=== PATIENT | female | born 1935 | race African-American/Black ===

== ENCOUNTER 2017-08-15 18:42 | Inpatient (IN) | payer OTHER ==
[~2017-08-15] VITALS: Ht 160 cm; Wt 96.2 kg
--- NOTE | ~2017-08-15 | 2DMMODE ---
[facility] [email or web address] [address] 2 D/M-MODE ECHOCARDIOGRAM Name: ANNAPEDRO Room #: 201-P [place] M.R.#: [id number] Admission: 08/15/17 Attend Phys: Ruperto Vinson, Discharge: Date of : 35 Date of Service: 08/17/17 0921 Report #: [id number] THIS REPORT FOR: //name// APPROVED REPORT Study performed: 08/17/2017 08:39:50 EXAM: Comprehensive 2D, Doppler, and color-flow Echocardiogram Patient Location: Bedside Room #: 201 Status: routine BSA: 2.02 HR: 59 bpm BP: 122/73 mmHg Other Information Study Quality: Adequate Indications COPD Diabetes Dyspnea Hypertension/HDD 2D Dimensions RVDd: 30.00 mm LVEF(%): 60.11 (>50%) IVSd: 12.14 (7-11mm) LVOT Diam: 20.84 (18-24mm) LVDd: 44.40 mm PWd: 12.20 (7-11mm) Ascending Ao: 27.89 (22-36mm) LVDs: 30.25 (25-40mm) Aortic Root: 33.24 mm IVC: 22.00 mm Swan's LVEF: 60.11 % Volumes Left Atrial Volume (Systole) Single Plane 4CH: 67.96 mL Single Plane 2CH: 58.80 mL LA ESV Index: 36.00 mL/m2 Aortic Valve AoV Peak Fausto.: 1.63 m/s AO Peak Gr.: 10.63 mmHg LVOT Max P.02 mmHg LVOT Max V: 1.12 m/s ROSA Vmax: 2.34 cm2 Mitral Valve [facility] [address] [place] [address] 2 D/M-MODE ECHOCARDIOGRAM Name: ANNAPEDRO Room #: [facility] IN ..#: [id number] Admission: 08/15/17 Attend Phys: Ruperto Vinson, Discharge: Date of : 35 Date of Service: 08/17/17 0921 Report #: [id number] E/A Ratio: 0.9 MV Decel. Time: 253.75 ms MV E Max Fausto.: 0.99 m/s MV A Fausto.: 1.12 m/s MV PHT: 73.59 ms IVRT: 106.11 ms Pulmonary Valve PV Peak Fausto.: 1.05 m/s PV Peak Gr.: 4.37 mmHg Pulmonary Vein P Vein S: 0.60 m/s P Vein A: 0.32 m/s P Vein D: 0.46 m/s P Vein A Dur.: 83.0 msec P Vein S/D Ratio: 1.30 Tricuspid Valve TR Peak Fausto.: 3.06 m/s TR Peak Gr.: 37.42 mmHg PA Pressure: 52.00 mmHg Left Ventricle The left ventricle is normal size. There is normal LV segmental wall motion. Mild concentric left ventricular hypertrophy. Left ventricular systolic function is hyperdynamic. LVEF is 65-70%. Grade I - abnormal relaxation pattern. Right Ventricle The right ventricle is normal size. The right ventricular systolic function is normal. Atria Left atrium is dilated. The right atrium size is normal. Aortic Valve Aortic valve is minimally calcified, trileaflet No aortic regurgitation is present. There is no aortic valvular stenosis. Mitral Valve Moderate mitral annular calcification Trace to mild mitral regurgitation. No evidence of mitral valve stenosis. Tricuspid Valve The tricuspid valve is normal in structure. There is trace tricuspid regurgitation. Estimated PAP [address] [address] 2 D/M-MODE ECHOCARDIOGRAM Name: PEDRO ANNA Room #: 201-P [place] IN ..#: [id number] Admission: 08/15/17 Attend Phys: Ruperto Vinson, Discharge: Date of : 35 Date of Service: 08/17/17 0921 Report #: [id number] Pulmonic Valve The pulmonary valve is normal in structure. Trace pulmonic regurgitation. Great Vessels The aortic root is normal in size. The inferior vena cava is dilated with no inspiratory collapse. Pericardium There is no pericardial effusion. <Conclusion> Left ventricular systolic function is hyperdynamic. LVEF is 65-70%. Normal LV segmental wall motion. Grade I diastolic dysfunction Aortic valve is minimally calcified, trileaflet. No aortic regurgitation or stenosis Moderate mitral annular calcification. Trace to mild mitral regurgitation. Pulmonary artery pressure of approximately 50mmHg There is no pericardial effusion. <ELECTRONICALLY SIGNED> By: Alejandro Key MD, FACC 08/17/17920 0 0 Alejandro Key MD, FACC /INF
--- NOTE | ~2017-08-15 | CATHLAB ---
[facility] [place] [address] INVASIVE PROCEDURE REPORT Name: PEDRO ANNA Room #: 201-P ADM IN .R.#: [id number] Admission: 08/15/17 Attend Phys: Ruperto Vinson, Discharge: Date of : 35 Date of Service: 08/20/17 0842 Report #: [id number] THIS REPORT FOR: //name// APPROVED REPORT Patient Details Patient Status: In-Patient Room #: The patient is a 82 year-old female Event Personnel Rahul Workman Payroll Examiner, Russel Luciano RN, Freddy Hester RN Monitor, Anisa Avitia Knisely, Ceola RN scow derrick operator Performed Art Access - R femoral artery* Left Heart Cath w/or w/o Coronaries [id number] [facility] Indication Non-STEMI , Positive stress test, Chest pain Risk Factors Hypercholesterolemia, HypertensionRenal Failure Procedure Narrative The patient was brought urgently to the Cardiac Catheterization Laboratory and was prepped and draped in a sterile manner. The Right Groin^ was infiltrated with 1% Lidocaine subcutaneous anesthesia. A PINNACLE 4FR Sheath #[id number] sheath was inserted into the RFA^. Coronary angiography was performed using coronary diagnostic catheters. The right coronary system was accessed and visualized with a JR 4 catheter. The left coronary system was accessed and visualized with a JL 4 catheter. The left ventricle was accessed and visualized with a Pigtail catheter. Left ventricular/Aortic Valve gradient assessed via catheter pullback. Hemostasis was obtained with manual pressure following sheath removal without any complications. The patient tolerated the procedure well and there were no complications associated with the procedure. There was no hematoma. Fluoro Time: 1.31 minutes Dose: DAP 3742.65 cGycm2 536 mGy Contrast Type and Amount: Visipaque 38 ml Coronary Angiography The patient's coronary anatomy is right dominant. [facility] [address] [place] [address] INVASIVE PROCEDURE REPORT Name: PEDRO ANNA Room #: 201-P [facility] IN ..#: [id number] Admission: 08/15/17 Attend Phys: Ruperto Vinson, Discharge: Date of : 35 Date of Service: 08/20/17 0842 Report #: [id number] Diagnostic Cath Left Main Patent vessel, with no flow-limiting lesions. LAD Patent vessel, with no flow-limiting lesions. There is only mild disease in the mid segment, 20%. Diagonal 1 Moderate size caliber vessel, with mild disease at the ostium, 20%. Circumflex Moderate size caliber vessel, with mild disease in the proximal segment, 20%. OM1 Patent vessel, with no flow-limiting lesions. OM2 Patent vessel, with no flow-limiting lesions. Right Coronary Patent vessel with mild disease in the mid segment, 20%. R PDA Patent vessel, with no flow-limiting lesions. RPLV Patent vessel, with no flow-limiting lesions. Left Ventriculography Left Ventriculography was not performed. Ejection Fraction was 60% based off patient's Nuclear Cardiac Stress Test. An LVEDP was measured and there is no gradient across the LVOT. Hemodynamics The aortic pressure is 188/87 mmHg with a mean of 111 mmHg. The left ventricular pressure is 141/18 mmHg with a mean of mmHg. The left ventricular end diastolic pressure is 38 mmHg. Conclusion 1. Mild, nonobstructive CAD. 2. Normal LV systolic function, evaluated by noninvasive studies. 3. Recommend medical therapy. <ELECTRONICALLY SIGNED> By: Rahul Workman MD 08/20/17841 1 1 Rahul Workman MD /INF
--- NOTE | ~2017-08-15 | EKG ---
[address] [place] [address] ELECTROCARDIOGRAM REPORT Name: ANNAPEDRO Room #: 201- ADM IN M.R.#: [id number] Admission: 08/15/17 Attend Phys: Ruperto Vinson MD Discharge: Date of : 35 Report #: [id number] THIS REPORT FOR: //name// [facility] Test Date: 2017-08-19 Test Time: 05:59:26 Pat Name: PEDRO ANNA Department: Room: 201 Gender: F Telephone Directory Distributor Driver: GRq : 1935 Requested By: Cristo Reddy Order Number: [id number] MD: Alejandro Key Measurements Intervals [place] Rate: 58 P: 52 [place]: 163 QRS: -13 QRSD: 97 T: 117 QT: 434 QTc: 427 Interpretive Statements Sinus rhythm Inferior infarct, old Baseline wander in lead(s) V6 Compared to ECG 08/18/2017 06:05:29 No significant change was found Electronically Signed On 08-19-2017 8:53:18 TOBACCO ACREAGE MEASURER by Alejandro Key [email or web address] <ELECTRONICALLY SIGNED> By: Alejandro Key MD, [facility] 08/19/17 0853 0559 0559 Alejandro Key MD, [facility] /EPI
--- NOTE | ~2017-08-15 | EKG ---
[address] [address] ELECTROCARDIOGRAM REPORT Name: PEDRO ANNA Room #: 201-P ADM IN M.R.#: [id number] Admission: 08/15/17 Attend Phys: Ruperto Vinson MD Discharge: Date of : 35 Report #: [id number] THIS REPORT FOR: //name// [facility] ED Test Date: 2017-08-15 Test Time: 18:44:24 Pat Name: PEDRO ANNA Department: Room: [facility] Gender: F Electric Stop Installer: SARA : 1935 Requested By: Marielle West Order Number: [id number] MD: Cristo Reddy Measurements Intervals [place] Rate: 77 P: 32 [place]: 150 QRS: -12 QRSD: 102 T: 114 QT: 396 QTc: 449 Interpretive Statements Sinus rhythm Probable left atrial enlargement LVH with secondary repolarization abnormality Inferior infarct, old Compared to ECG 12/31/2014 12:03:36 Myocardial infarct finding now present Electronically Signed On 08-16-2017 16:07:25 BEAN SPROUT LABORER by Cristo Reddy [email or web address] <ELECTRONICALLY SIGNED> By: Cristo Reddy MD 08/16/17 1607 1844 1844 Cristo Reddy MD /EPI
--- NOTE | ~2017-08-15 | EKG ---
[address] [address] ELECTROCARDIOGRAM REPORT Name: PEDRO ANNA Room #: 201-P ADM IN M.R.#: [id number] Admission: 08/15/17 Attend Phys: Ruperto Vinson MD Discharge: Date of : 35 Report #: [id number] THIS REPORT FOR: //name// [facility] Test Date: 2017-08-20 Test Time: 05:56:08 Pat Name: PEDRO ANNA Department: Room: 201 P Gender: F Automotive Mechanic: NASIM : 1935 Requested By: Cristo Reddy Order Number: [id number] MD: Cristo Reddy Measurements Intervals [place] Rate: 45 P: 58 IN: 166 QRS: -8 QRSD: 102 T: 101 QT: 460 QTc: 398 Interpretive Statements Sinus bradycardia Nonspecific T abnormalities, lateral leads Compared to ECG 08/19/2017 05:59:26 T-wave abnormality now present Sinus rhythm no longer present Myocardial infarct finding no longer present Electronically Signed On 08-20-2017 11:21:42 CYLINDER SANDER OPERATOR by Cristo Reddy [email or web address] <ELECTRONICALLY SIGNED> By: Cristo Reddy MD 08/20/17 1121 0556 0556 Cristo Reddy MD /EPI
--- NOTE | ~2017-08-15 | EKG ---
[place] [address] [facility] [place] [address] ELECTROCARDIOGRAM REPORT Name: PEDRO ANNA Room #: 201- ADM IN M.R.#: [id number] Admission: 08/15/17 Attend Phys: Ruperto Vinson MD Discharge: Date of : 35 Report #: [id number] THIS REPORT FOR: //name// [facility] Test Date: 2017-08-17 Test Time: 06:13:37 Pat Name: PEDRO ANNA Department: Room: 201 Gender: F Textile Conservator: NASIM : 1935 Requested By: Cristo Rdedy Order Number: [id number] MD: Alejandro Key Measurements Intervals [place] Rate: 58 P: 50 [place]: 172 QRS: -1 QRSD: 99 T: 128 QT: 416 QTc: 409 Interpretive Statements Sinus rhythm Repol abnrm suggests ischemia, lateral leads Compared to ECG 08/15/2017 18:44:24 No significant changes Electronically Signed On 08-17-2017 7:49:32 EXIT BOOTH AGENT by Alejandro Key [email or web address] <ELECTRONICALLY SIGNED> By: Alejandro Key MD, [facility] 08/17/17 0749 2 2 Alejandro Key MD, [facility] /EPI
--- NOTE | ~2017-08-15 | EKG ---
[address] [address] ELECTROCARDIOGRAM REPORT Name: PEDRO ANNA Room #: 201-P ADM IN M.R.#: [id number] Admission: 08/15/17 Attend Phys: Ruperto Vinson MD Discharge: Date of : 35 Report #: [id number] THIS REPORT FOR: //name// [facility] Test Date: 2017-08-17 Test Time: 06:25:05 Pat Name: PEDRO ANNA Department: Room: 201 Gender: F Corncob Pipe Manufacturing Supervisor: NASIM : 1935 Requested By: Cristo Reddy Order Number: [id number] MD: Cristo Reddy Measurements Intervals [place] Rate: 72 P: 94 CT: 146 QRS: -11 QRSD: 142 T: 161 QT: 431 QTc: 472 Interpretive Statements Sinus rhythm Ventricular premature complex Left bundle branch block Compared to ECG 08/17/2017 06:13:37 Ventricular premature complex(es) now present Left bundle-branch block now present Early repolarization no longer present Possible ischemia no longer present Electronically Signed On 08-17-2017 16:26:46 RELAY ADJUSTER by Cristo Reddy [email or web address] <ELECTRONICALLY SIGNED> By: Cristo Reddy MD 08/17/17 1626 Cristo Reddy MD /EPI
--- NOTE | ~2017-08-15 | EKG ---
[address] [place] [address] ELECTROCARDIOGRAM REPORT Name: WILFRIDOPEDRO Room #: 201-P ADM IN M.R.#: [id number] Admission: 08/15/17 Attend Phys: Ruperto Vinson MD Discharge: Date of : 35 Report #: [id number] THIS REPORT FOR: //name// [facility] Test Date: 2017-08-18 Test Time: 06:05:29 Pat Name: PEDRO ANNA Department: Room: 201 Gender: F Touch Up Edger: NASIM : 1935 Requested By: Cristo Reddy Order Number: [id number] MD: Alejandro Key Measurements Intervals [place] Rate: 64 P: 54 [place]: 159 QRS: -11 QRSD: 98 T: 119 QT: 409 QTc: 422 Interpretive Statements Sinus arrhythmia Inferior infarct, old Nonspecific ST segment abnormality Compared to ECG 08/17/2017 06:25:05 Left bundle-branch block no longer present premature ventricular complexes no longer present Electronically Signed On 08-18-2017 7:45:28 NURSE PLASTICS by Alejandro Key [email or web address] <ELECTRONICALLY SIGNED> By: Alejandro Key MD, FACC 08/18/17 0745 Alejandro Key MD, [facility] /EPI
--- NOTE | ~2017-08-15 | HC ---
[facility] [place] [address] CONSULTATION Name: PEDRO ANNA Room #: 201-P [facility] IN M.R.#: [id number] Admission: 08/15/17 Attend Phys: Ruperto Vinson MD Discharge: 08/20/17 Date of : 35 Report #: [id number] THIS REPORT FOR: //name// CC: Ruperto Chopra DATE OF SERVICE: 08/16/2017 TYPE OF CONSULTATION: Cardiology. REASON FOR CONSULTATION: Non-ST segment elevation myocardial infarction. HISTORY OF PRESENT ILLNESS: This patient is an 82-year-old female with a history of COPD, chronic renal insufficiency, diabetes, and hypertension, who presents with new onset chest pain. She reports that she was lying in bed, watching TV yesterday when she had 7/10 chest pressure, radiating to her neck, which resolved when she presented to the Emergency Room. She is currently chest pain free. She has chronic shortness of breath, on home oxygen. She denies any PND or orthopnea. She denies presyncope or syncope. REVIEW OF SYSTEMS: A 12-point review of systems was performed and was negative other than what I mentioned above. PAST MEDICAL HISTORY: 1. COPD, on oxygen. 2. Chronic renal insufficiency. 3. Diabetes. 4. Hypertension. 5. CVA. 6. Hyperlipidemia. 7. Breast cancer, status post bilateral mastectomy. 8. CVA in 2001. SOCIAL HISTORY: Quit smoking 30 years ago. FAMILY HISTORY: Includes CVA in the family member. ALLERGIES: Include LISINOPRIL and HYDROCODONE. HOME MEDICATIONS: Include glimepiride, Lasix, simvastatin, Synthroid, losartan, doxazosin, hydralazine, Toprol 200 mg a day, and insulin. PHYSICAL EXAMINATION: VITAL SIGNS: Temperature is 36.6, pulse in the 50s to 60s, respirations 18, blood pressure 177/72, sats are 99%. GENERAL: She is in no acute distress. [address] [address] CONSULTATION Name: PEDRO ANNA Room #: [address] [place] [address] [place] ..#: [id number] Admission: 08/15/17 Attend Phys: Ruperto Vinson MD Discharge: 08/20/17 Date of : 35 Report #: [id number] HEENT: Oropharynx is clear and her sclerae are anicteric. NECK: Supple with no thyromegaly. HEART: Regular rate and rhythm with no murmurs, rubs or gallops. CHEST: Clear to auscultation bilaterally. ABDOMEN: Soft, nontender, nondistended with no hepatosplenomegaly. EXTREMITIES: There is no clubbing, cyanosis or edema. NEUROLOGIC: Cranial nerves 2-12 are intact. LABORATORY DATA: White count is 11, hemoglobin 9, platelets 162. Blood gas, pH is 7.3, pCO2 41, pO2 is 86. Chemistries: Sodium is 139, potassium 4.4, BUN 51, creatinine 2.7, glucose 209. Troponin is 0.2 increased from 0.1 and the initial troponin was less than 0.04. BNP is 202. Her chest x-ray shows possible right-sided pleural effusion. Her EKG shows sinus rhythm with an intraventricular conduction delay and no ischemic changes. IMPRESSION: 1. Non-ST segment elevation myocardial infarction. 2. Acute on chronic renal insufficiency. 3. Chronic obstructive pulmonary disease, on oxygen. 4. Diabetes mellitus. 5. Hypertension. 6. Hyperlipidemia. 7. Prior cerebrovascular accident. 8. Hyperkalemia. PLAN: In summary, the patient is an 82-year-old female, presenting with new onset chest pain and elevation in her troponin level with no ischemic changes on her EKG. It appears that the patient has had a non-ST segment elevation MN. She is currently in acute on chronic renal insufficiency. Creatinine was normal few years ago, but I do not have any other more recent laboratories. The patient requires an ischemic evaluation. Ideally, we would proceed with a diagnostic cardiac catheterization, but due to her renal insufficiency, we will need to hold off. I will order a nuclear stress test to see if we can determine the territory of ischemia. I will stop her losartan therapy and give her some IV fluids and I recommended a Nephrology consultation. We will also order an echocardiogram. We will follow. <ELECTRONICALLY SIGNED> By: Cristo Reddy MD 08/21/17 1313 0952 0359 Cristo Reddy MD /nt
--- NOTE | ~2017-08-15 | HC ---
[facility] [place] [address] CONSULTATION Name: PEDRO ANNA Room #: 201-P [facility] IN M.R.#: [id number] Admission: 08/15/17 Attend Phys: Ruperto Vinson MD Discharge: 08/20/17 Date of : 35 Report #: [id number] THIS REPORT FOR: //name// CC: Ruperto Chopra DATE OF SERVICE: 08/16/2017 ATTENDING PHYSICIAN: Dr. Vinson. REASON FOR CONSULTATION: Chronic kidney disease. HISTORY OF PRESENT ILLNESS: This 82-year-old patient with diabetes mellitus and triopathy, has known diabetic nephropathy and has been seen in our office. She developed a squeezing chest pressure yesterday, was brought to the hospital, was found that subsequently to have an elevated troponin and is being evaluated for coronary artery disease. Symptoms resolved, but she may be in need of heart catheterization. PAST MEDICAL HISTORY: She has longstanding diabetes. She has got retinopathy, rather symptomatic, peripheral neuropathy and apparent nephropathy and has been seen in our office. At that time, her diuretics were adjusted down, and she developed some swelling in her legs. I will review the office records. I am unclear as to the exact level of her outpatient creatinines in the past, but her creatinine here is 2.7. She is a former smoker with some degree of known COPD. She has had previous bilateral mastectomies for breast cancer, laser surgery for diabetic retinopathy. ALLERGIES: REPORTEDLY TO LISINOPRIL, WHICH PRODUCED FACIAL EDEMA AND HYDROCODONE. FAMILY HISTORY: Strongly positive for diabetes, but negative for renal disease or diabetic complications as we know. SOCIAL HISTORY: Former heavy smoker, but she quit. No substantial alcohol. HOME MEDICATIONS: She is a little bit unclear, but as best as I can tell, she has been on glimepiride 3 mg daily, furosemide 40 mg once a day, previously twice a day. She was on spironolactone that was discontinued. Simvastatin 20 mg daily, levothyroxine 0.125 mg daily, losartan 100 mg daily, doxazosin 4 mg daily, hydralazine 100 mg t.i.d., metoprolol XL 200 mg daily and Lantus insulin. REVIEW OF SYSTEMS: GENERAL: She has been feeling reasonably well. EYES: She has had some trouble with her eyesight and has had laser surgery to her retina. [address] [address] CONSULTATION Name: PEDRO ANNA Room #: 201-P [facility] IN .R.#: [id number] Admission: 08/15/17 Attend Phys: Ruperto Vinson MD Discharge: 08/20/17 Date of : 35 Report #: [id number] ENT: Swallows okay without mouth ulcers. ENDOCRINE: Positive for diabetes and thyroid disease. RESPIRATORY: Somewhat easily short-winded with occasional wheezing. CARDIAC: No prior chest pain, history of angina, palpitations or heart failure. GASTROINTESTINAL: No nausea, vomiting, diarrhea or difficulty with digestion. GENITOURINARY: No dysuria, hematuria or renal stone disease. NEUROLOGIC: She has got the severe pain in her legs and just a little bit of numbness in her feet. PSYCHIATRIC: Denies depression or anxiety. PHYSICAL EXAMINATION: VITAL SIGNS: Somewhat overweight, pleasant woman, in absolutely no distress. SKIN: Unremarkable. SKELETAL: Well developed, well nourished, obese. HEENT: Extraocular movements are full. Vision grossly intact. Hearing intact. Mucous membranes moist. Tongue, buccal mucosa benign. NECK: Supple, without jugular vein distention, no carotid bruits. HEART: Regular without murmurs, gallops or rubs. CHEST: Shows some crackles heard, inspiratory crackles at the right base. ABDOMEN: Soft and nontender, without bruits, masses or organomegaly. EXTREMITIES: Show 1+ edema only of the left ankle. Peripheral pulses are intact. NEUROLOGIC: Grossly intact. LABORATORY DATA: No urinalysis. Hemoglobin 9.1, platelets 162. Sodium 139, potassium 4.4, chloride 106, bicarbonate 23, BUN 51, creatinine 2.7. ASSESSMENT: 1. Chronic kidney disease. She appears to have diabetic nephropathy. I will check urinary protein studies for completeness, paraprotein studies and renal sonogram need to be done as well. She is getting some IV fluids, which is appropriate, but we certainly do not need to overdo that. She is getting a stress test. She may need a heart catheterization. Certainly if warranted, a cardiac workup would be indicated, and we will do the best we can to prevent dye nephropathy. 2. Acute coronary syndrome. She has elevated troponin and appropriate history. I had an opportunity to examine her EKGs. She did have a question of a little bit of fluid overload on her initial chest x-ray reviewed by myself. 3. History of breast cancer, status post bilateral mastectomies, remote. 4. Hypothyroidism, on replacement. 5. 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 <ELECTRONICALLY SIGNED> By: Liam Christianson MD 08/28/17 1042 1623 0939 Liam Christianson MD /nt
[2017-08-15 18:42] VITALS: BP 131/64
[~2017-08-15 18:42] MED LIST: ACTOS 45 MG45 M1; AFEDITAB CR30 MG PO; AGGRENOX CAPSU1 EACH; ALEVE220 MG PO; BENADRYL25 MG PO; CARDURA2 MG PO; CARDURA4 MG PO; COMBIGAN EYE DR10 ML; COZAAR100 MG PO; GLUMETZA1000 PO; GLYBURIDE 5 MG T5 MG; HCTZ; HYDRALAZINE 5050 MG PO; HYDRALAZINE HC100 MG PO; HYDROCHLOROTHIA50 MG PO; K-DUR 20 MEQ T20 MEQ; LANTUS SUBQ; LASIX 40 MG TAB40 M2 PO; LASIX 80 MG TAB80 MG PO; LATANOPROST2.5 ML OP; LEVOCETIRIZINE D5 MG PO; LEVOTHYROXIN0.125 M1 PO; LISINOPRIL40 MG; METFORMIN HCL500 MG PO; NORCO 5-325 TA1 EACH; NORVASC10 MG; NYSTATIN1 EA10; PREDNISONE50 MG PO; TOPROL XL200 MG PO; TOPROL XL25 MG PO; TRAMADOL 50 MG50 MG PO; VALIUM5 MG PO; VENTOLIN HFA 1818 GM INH; ZOCOR 20 MG TAB20 M1 PO; ZPAK PO
[2017-08-15 19:18] LABS: ABSOLUTE NEUTROPHILS 8.6 thou/uL (1.4-8.2); BASOPHILS 0.6 % (0.0-2.0); EOSINOPHILS 0.9 % (0.0-3.0); HEMATOCRIT 29.1 % (37.0-47.0); HEMOGLOBIN 9.1 gm/dL (12.0-15.0); LYMPHOCYTES 14.8 % (24.0-44.0); MANUAL DIFF NO; MCH 27.3 pg (26.0-34.0); MCHC 31.1 g/dL (28.0-37.0); MCV 87.7 fL (80.0-100.0); MONOCYTES 6.1 % (1.0-8.0); PLATELET COUNT 162 thou/uL (150-400); POLYS 77.6 % (36.0-66.0); RBC 3.32 mil/uL (4.20-5.00); RDW 14.7 % (10.5-14.5); WBC 11.1 thou/uL (4.0-11.0)
[2017-08-15 19:22] LABS: ABG SAMPLE TYPE ARTERIAL; BE(vivo) -5.6 mmol/L (-2 to +3); HCO3 20.4 mmol/L (22.0-26.0); LACTATE 1.45 mmol/L (0.5-2.0); O2(CT) 16.3 mL/dL (15.0-23.0); O2Hb 94.6 % (92.0-98.0); PCO2 41.6 mmHg (35.0-45.0); PO2 86.4 mmHg (80.0-100.0); sO2 95.7 % (92.0-98.0); tCO2 21.7 mmol/L (24.0-30.0)
[2017-08-15 19:23] LABS: STICK SITE LRA
[2017-08-15 19:25] LABS: pH 7.308 (7.360-7.450)
[2017-08-15 19:26] LABS: ANION GAP 9 mmol/L (7-16); BUN 52 mg/dL (7-18); CALCIUM 9.6 mg/dL (8.5-10.1); CHLORIDE 106 mmol/L (98-107); CO2 24 mmol/L (21-32); CREATININE 2.8 mg/dL (0.6-1.0); GLUCOSE 224 mg/dL (74-106); SODIUM 139 mmol/L (136-145)
[2017-08-15 19:34] LABS: TROPONIN-I < 0.04 ng/mL (<0.06)
[2017-08-15 19:35] LABS: POTASSIUM 5.8 mmol/L (3.5-5.1)
[2017-08-15 20:22] LABS: CALCIUM 9.9 mg/dL (8.5-10.1); CREATININE 2.7 mg/dL (0.6-1.0); POTASSIUM 4.4 mmol/L (3.5-5.1)
[2017-08-15 21:07] VITALS: BP 141/66
[2017-08-15] MEDS ORDERED: AMARYL2 MG PO (21:54)
[2017-08-15 22:16] VITALS: BP 134/65
[2017-08-16] VITALS (7 sets, daily range): BP systolic 116–177; BP diastolic 47–72
[2017-08-16 01:24] LABS: CHOLESTEROL 116 mg/dL (<200); HDL CHOLESTEROL 65 mg/dL (>40); LDL CHOLESTEROL 41 mg/dL (<100); SERUM ASSESSMENT Clear; TC:HDL 1.8 Ratio (Not establshd); TRIGLYCERIDE 53 mg/dL (<150); VLDL 11 mg/dL (<40)
[2017-08-16] MEDS ORDERED: LASIX 40 MG TAB40 M2 PO (02:11)
[2017-08-16 15:06] LABS: GLYCOHEMOGLOBIN (HGB A1C) 7.2 % (4.8-5.6)
[2017-08-16 17:48] LABS: URINE BILIRUBIN NEGATIVE (Negative); URINE BLOOD NEGATIVE (Negative); URINE COLOR YELLOW; URINE GLUCOSE-RANDOM* 3+ (Negative); URINE KETONES NEGATIVE (Negative); URINE NITRITE NEGATIVE (Negative); URINE PROTEIN (DIPSTICK) NEGATIVE (Negative); URINE UROBILINOGEN 0.2 E.U./dl (0.2-1.0)
[2017-08-16 17:52] LABS: PROT/CREAT RATIO 0.1; URINE CREATININE-RANDOM* 93.1 mg/dL
[2017-08-17 03:48] VITALS: BP 122/73
[2017-08-17 04:11] LABS: HEMATOCRIT 26.7 % (37.0-47.0); HEMOGLOBIN 8.4 gm/dL (12.0-15.0); MCH 27.7 pg (26.0-34.0); MCHC 31.3 g/dL (28.0-37.0); MCV 88.3 fL (80.0-100.0); RBC 3.02 mil/uL (4.20-5.00); RDW 14.8 % (10.5-14.5); WBC 13.1 thou/uL (4.0-11.0)
[2017-08-17 04:23] LABS: ALBUMIN 3.3 g/dL (3.4-5.0); CALCIUM 9.3 mg/dL (8.5-10.1); CREATININE 2.1 mg/dL (0.6-1.0); PHOSPHORUS 3.3 mg/dL (2.5-4.9); POTASSIUM 4.7 mmol/L (3.5-5.1)
[2017-08-17 13:20] LABS: FOLIC ACID 8.8 ng/mL (8.6-58.9)
[2017-08-17 14:00] VITALS: BP 135/61
[2017-08-17 15:29] VITALS: BP 152/74
[2017-08-17 19:21] VITALS: BP 151/68
[2017-08-18 03:45] LABS: HEMOGLOBIN 8.3 gm/dL (12.0-15.0); MCH 28.4 pg (26.0-34.0); MCHC 31.9 g/dL (28.0-37.0); RBC 2.93 mil/uL (4.20-5.00); WBC 9.5 thou/uL (4.0-11.0)
[2017-08-18 03:52] LABS: ALBUMIN 3.2 g/dL (3.4-5.0); CALCIUM 9.2 mg/dL (8.5-10.1); CREATININE 1.9 mg/dL (0.6-1.0); MAGNESIUM 1.9 mg/dL (1.8-2.4); POTASSIUM 4.9 mmol/L (3.5-5.1)
[2017-08-18 03:55] LABS: % SATURATION 11 % (20-39); IRON 35 ug/dL (50-170); TIBC 311 ug/dL (250-450); UIBC 276 ug/dL
[2017-08-18 03:57] VITALS: BP 153/71
[2017-08-18 07:16] VITALS: BP 123/62
[2017-08-18 11:32] VITALS: BP 160/75
[2017-08-18 13:11] LABS: KAPPA FREE LIGHT CHAINS 36.5 mg/L (3.3-19.4); KAPPA/LAMBDA RATIO 1.67 (0.26-1.65); LAMBDA FREE LIGHT CHAINS 21.8 mg/L (5.7-26.3)
[2017-08-18 15:18] VITALS: BP 159/70
[2017-08-18 19:54] VITALS: BP 156/69
[2017-08-19 04:11] VITALS: BP 152/69
[2017-08-19 04:26] LABS: ABSOLUTE NEUTROPHILS 5.6 thou/uL (1.4-8.2); BASOPHILS 0.6 % (0.0-2.0); EOSINOPHILS 2.7 % (0.0-3.0); HEMATOCRIT 27.6 % (37.0-47.0); HEMOGLOBIN 8.8 gm/dL (12.0-15.0); LYMPHOCYTES 18.1 % (24.0-44.0); MCH 28.2 pg (26.0-34.0); MCV 88.3 fL (80.0-100.0); MONOCYTES 11.4 % (1.0-8.0); PLATELET COUNT 152 thou/uL (150-400); POLYS 67.2 % (36.0-66.0); RBC 3.12 mil/uL (4.20-5.00); RDW 14.7 % (10.5-14.5); WBC 8.4 thou/uL (4.0-11.0)
[2017-08-19 04:36] LABS: CALCIUM 9.3 mg/dL (8.5-10.1); CREATININE 1.8 mg/dL (0.6-1.0); POTASSIUM 4.6 mmol/L (3.5-5.1)
[2017-08-19 04:43] LABS: MANUAL DIFF NO
[2017-08-19 07:17] VITALS: BP 129/57
[2017-08-19 09:08] LABS: ALBUMIN 3.5 g/dL (2.9-4.4); ALPHA 1 0.2 g/dL (0.0-0.4); ALPHA 2 0.8 g/dL (0.4-1.0); BETA 1.1 g/dL (0.7-1.3); GAMMA 1.4 g/dL (0.4-1.8); M-SPIKE Not Observed g/dL (Not Observed)
[2017-08-19 11:48] VITALS: BP 165/74
[2017-08-19 19:05] VITALS: BP 149/62
[2017-08-20] VITALS: BP 155/70
[2017-08-20 03:30] VITALS: BP 146/57
[2017-08-20 03:37] LABS: HEMATOCRIT 27.9 % (37.0-47.0); HEMOGLOBIN 8.7 gm/dL (12.0-15.0); MCH 27.8 pg (26.0-34.0); MCHC 31.3 g/dL (28.0-37.0); RBC 3.13 mil/uL (4.20-5.00); RDW 14.8 % (10.5-14.5); WBC 8.6 thou/uL (4.0-11.0)
[2017-08-20 03:51] LABS: CREATININE 1.6 mg/dL (0.6-1.0); PHOSPHORUS 2.8 mg/dL (2.5-4.9); POTASSIUM 4.8 mmol/L (3.5-5.1)
[2017-08-20 07:20] VITALS: BP 152/66
[2017-08-20 11:25] VITALS: BP 161/64
[2017-08-20] MEDS ORDERED: ASPIR 8181 MG PO (11:51)
[2017-08-20 13:45] VITALS: BP 161/64
== END 2017-08-20 14:30 | disposition home or self-care (01) | DRG 281 ==
LOC: ER 18:42 → 2N 20:13 → EROBS 20:13 → 2N 21:08 → ENTRNSPT 08-20 14:12 → EDTRNSPTSTS 08-20 14:17 → 2N 08-20 14:30
PROVIDERS: Emergency Medicine; Internal Medicine; Internal Medicine Cardiovascular Disease; Internal Medicine Nephrology; Nurse Practitioner Acute Care
PROC: B2111ZZ Fluoroscopy of Multiple Coronary Arteries using Low Osmolar Contrast (ICD-10-PCS; principal; 2017-08-20)
PROC: 4A023N7 Measurement of Cardiac Sampling and Pressure, Left Heart, Percutaneous Approach (ICD-10-PCS; principal; 2017-08-20)
DX: I21.4 Non-ST elevation (NSTEMI) myocardial infarction (principal); N17.9 Acute kidney failure, unspecified; E78.00 Pure hypercholesterolemia, unspecified; J44.9 Chronic obstructive pulmonary disease, unspecified; I12.9 Hypertensive chronic kidney disease with stage 1 through stage 4 chronic kidney disease, or unspecified chronic kidney disease; E11.22 Type 2 diabetes mellitus with diabetic chronic kidney disease; E87.5 Hyperkalemia; I24.9 Acute ischemic heart disease, unspecified; E11.319 Type 2 diabetes mellitus with unspecified diabetic retinopathy without macular edema; E11.40 Type 2 diabetes mellitus with diabetic neuropathy, unspecified; E89.0 Postprocedural hypothyroidism; I27.20 Pulmonary hypertension, unspecified; N18.3 Chronic kidney disease, stage 3 (moderate); D64.9 Anemia, unspecified; E11.51 Type 2 diabetes mellitus with diabetic peripheral angiopathy without gangrene; I25.10 Atherosclerotic heart disease of native coronary artery without angina pectoris; Z80.0 Family history of malignant neoplasm of digestive organs; Z90.13 Acquired absence of bilateral breasts and nipples; Z82.3 Family history of stroke; Z83.3 Family history of diabetes mellitus; Z86.73 Personal history of transient ischemic attack (TIA), and cerebral infarction without residual deficits; Z85.3 Personal history of malignant neoplasm of breast; Z79.899 Other long term (current) drug therapy; Z88.8 Allergy status to other drugs, medicaments and biological substances; Z82.49 Family history of ischemic heart disease and other diseases of the circulatory system; Z87.891 Personal history of nicotine dependence
CPT/HCPCS: 10081

== ENCOUNTER 2020-03-06 17:45 | Inpatient (IN) | payer OTHER ==
[~2020-03-06] VITALS: Ht 160 cm; Wt 93.8 kg
[2020-03-06 17:45] VITALS: BP 127/59
[~2020-03-06 17:45] MED LIST changes: +AMARYL2 MG PO; +ASPIR 8181 MG PO; -LEVOTHYROXIN0.125 M1 PO; +SYNTHROID100 MC1 PO
[2020-03-06 20:11] LABS: ABSOLUTE NEUTROPHILS 6.7 thou/uL (1.4-8.2); BASOPHILS 1.3 % (0.0-2.0); HEMATOCRIT 24.2 % (37.0-47.0); HEMOGLOBIN 7.9 gm/dL (12.0-15.0); MCH 29.5 pg (26.0-34.0); MCHC 32.6 g/dL (28.0-37.0); MCV 90.7 fL (80.0-100.0); MONOCYTES 7.5 % (1.0-8.0); PLATELET COUNT 207 thou/uL (150-400); POLYS 74.2 % (36.0-66.0); RBC 2.67 mil/uL (4.20-5.00); RDW 16.2 % (10.5-14.5); WBC 9.1 thou/uL (4.0-11.0)
[2020-03-06 20:20] LABS: CALCIUM 9.7 mg/dL (8.5-10.1); CREATININE 2.5 mg/dL (0.6-1.0); POTASSIUM 5.4 mmol/L (3.5-5.1)
[2020-03-06 20:26] LABS: ALBUMIN 3.5 g/dL (3.4-5.0); TOTAL BILIRUBIN 0.3 mg/dL (0.2-1.0); TOTAL PROTEIN 7.1 g/dL (6.4-8.2)
[2020-03-06 20:40] LABS: URINE BILIRUBIN NEGATIVE (Negative); URINE BLOOD NEGATIVE (Negative); URINE CLARITY CLEAR; URINE COLOR YELLOW; URINE GLUCOSE-RANDOM* NEGATIVE (Negative); URINE KETONES NEGATIVE (Negative); URINE NITRITE-REFLEX NEGATIVE (Negative); URINE PROTEIN (DIPSTICK) NEGATIVE (Negative); URINE UROBILINOGEN 0.2 E.U./dl (0.2-1.0)
[2020-03-06 20:46] LABS: URINE LEUKOCYTES-REFLEX 1+ (Negative)
[2020-03-06 20:57] LABS: CASTS None Seen /LPF (None Seen); CRYSTALS None Seen /LPF (None Seen); SQUAMOUS 4-10 Moderate /LPF (0-3); URINE RBC None Seen /HPF (0-2); URINE WBC-REFLEX 6-15 Few /HPF (0-5)
[2020-03-06 20:58] LABS: YEAST-REFLEX Present (None Seen)
[2020-03-06] MEDS ORDERED: CHILDREN'S ASPI81 M1 PO (21:03)
[2020-03-06] MEDS ORDERED: LEVEMIR100 UNIT/1 SUBQ (21:05)
[2020-03-06] MEDS ORDERED: SPIRONOLACTONE50 MG PO (21:06)
[2020-03-06] MEDS ORDERED: [UNRECOGNIZED DRUG - OTHER] PO (21:07)
[2020-03-07] VITALS (20 sets, daily range): BP systolic 87–155; BP diastolic 37–63
--- NOTE | 2020-03-07 04:56 | NUR ---
0430 PT ARRIVED VIA CART FROM ER. GOT PT SETTLED IN BED FOR SOME REST. ADMISSION, CARE PLAN, MED REC, INTERVENTIONS ALL COMPLETED. PT IS A/0X4, UP WITH SBA, NO FEVER, AND TELE SHOWS SB W/BBB. 3L VIA NC. WILL BEGIN THE POC THAT HAS BEEN ESTABLISHED AT THIS POINT.
[2020-03-07 06:26] LABS: CHOLESTEROL 95 mg/dL (<200); HDL CHOLESTEROL 42 mg/dL (>40); LDL CHOLESTEROL 27 mg/dL (<100); TC:HDL 2.3 Ratio (Not establshd); TRIGLYCERIDE 131 mg/dL (<150); VLDL 26 mg/dL (<40)
[2020-03-07 06:30] LABS: SERUM ASSESSMENT Clear
--- NOTE | 2020-03-07 07:32 | EKG ---
[facility] [place] [address] ELECTROCARDIOGRAM REPORT Name: PEDRO ANNA Room #: 238-P ADM IN M.R.#: [id number] Admission: 03/06/20 Attend Phys: Tejas Ayala MD Discharge: Date of : 35 Report #: [id number] THIS REPORT FOR: cc: Tracie Chopra MD, Nora P. MD Lundgren,Alejandro Rodriguez MD [facility] ~ THIS REPORT FOR: //name// [facility] ED Test Date: 2020-03-06 Test Time: 19:23:07 Pat Name: PEDRO ANNA Department: Room: 238 Gender: F Motor Vehicle Compliance Analyst: EMILIE : 1935 Requested By: Austyn Clinton Order Number: [id number] MD: Alejandro Key Measurements Intervals [place] Rate: 48 P: 37 [place]: 176 QRS: -6 QRSD: 98 T: 120 QT: 417 QTc: 373 Interpretive Statements Sinus bradycardia Ventricular premature complex Inferior infarct, old Compared to ECG 08/20/2017 05:56:08 Ventricular premature complex(es) now present Electronically Signed On 03-07-2020 7:31:16 CDT by Alejandro Key [email or web address] <ELECTRONICALLY SIGNED> By: Alejandro Key MD, [facility] 03/07/20 0731 22 22 Alejandro Key MD, FAC /EPI
--- NOTE | 2020-03-07 11:58 | NUR ---
ALERT AND ORIENTED AND HAS DENIED PAIN. VITALS STABLE. UP TO CHAIR WITH STANDBY ASSIST AND ABLE TO USE BSC. TOLERATED DIET W/O NAUSEA. DAUGHTER UPDATED OVER THE PHONE THIS MORNING.
--- NOTE | 2020-03-07 16:17 | NUR ---
Chart reviewed and case discussed with the care team. Pt currently in ICU in enhanced precautions for r/o covid and codp exac, pneumonia. She has had one covid neg result today. Observatory Director spoke with the pt's dtr Meredith. She indicates that the pt lives alone in a one story home. She has no steps unless going to the basement to do laundry, which she does occasionally. Her dtr is there almost daily to help with meal prep, errands and housekeeping. The pt no longer drives as of a few months ago. She does manage her own medications and is indep with gait and adl's. She has home o2 at 3liters PRN from [employer]. She does not use any other DME. Cm role introduced. Dtr open to HH referral at pr as the pt may benefit from f/u at pr. Will ask for therapy evals. Pt's dtr [place] and [place]. Dtr is very supportive and is hoping the pt will be able to go home in a few days. Will follow.
--- NOTE | 2020-03-07 17:00 | NUR ---
SET PATIENT'S [place] PHONE IN THE ROOM AND PATIENT CALLED ESTRELLA, THEN DAUGHTER CALLED RN AND WAS UPDATED THIS AFTERNOON.
--- NOTE | 2020-03-07 21:22 | NUR ---
REPORT GIVEN TO ONCOMING RN, PATIENT ALERT AND ORIIENTED X 4, TO COMMODE WITH SBA. DR. SÁNCHEZ PRESENT AT THE BEDSIDE TONIGHT, DISCONTINUED ENHANCED PRECAUTIONS. PATIENT TRANSFERRED TO ROOM 249 ICU POD 3. NABIL SANCHES (DAUGHTER) UPDATED ON PLAN OF CARE AND PATIENT'S TRANSFER. DAUGHTER ALSO EDUCATED ON VISITOR POLICY. NO SIGN OF ACUTE DISTRESS NOTED AT THIS TIME.
--- NOTE | 2020-03-07 23:13 | NUR ---
REPORT GIVEN TO 3 TOWANDA RN, DAUGHTER (OLI SANCHES) NOTIFIED OF TRANSFER TO ROOM 354. PATIENT TRANSFERRED BY STAFF.
[2020-03-08 00:06] LABS: GLYCOHEMOGLOBIN (HGB A1C) 7.8 % (4.8-5.6)
[2020-03-08 04:23] VITALS: BP 142/60
[2020-03-08 05:16] LABS: CREATININE 2.2 mg/dL (0.6-1.0); MAGNESIUM 1.6 mg/dL (1.8-2.4)
[2020-03-08 05:17] LABS: POTASSIUM 6.4 mmol/L (3.5-5.1)
[2020-03-08 05:45] LABS: ABSOLUTE NEUTROPHILS 10.3 thou/uL (1.4-8.2); HEMATOCRIT 24.4 % (37.0-47.0); HEMOGLOBIN 7.7 gm/dL (12.0-15.0); LYMPHOCYTES 5.7 % (24.0-44.0); MCH 28.8 pg (26.0-34.0); MCHC 31.4 g/dL (28.0-37.0); MCV 91.8 fL (80.0-100.0); MONOCYTES 1.2 % (1.0-8.0); PLATELET COUNT 190 thou/uL (150-400); POLYS 93.1 % (36.0-66.0); RBC 2.66 mil/uL (4.20-5.00); RDW 15.9 % (10.5-14.5); WBC 11.1 thou/uL (4.0-11.0)
[2020-03-08 07:46] VITALS: BP 144/55
--- NOTE | 2020-03-08 15:10 | NUR ---
SW reviewed chart and spoke with nursing and attending physician. Pt was transferred to from ICU. Pt's COVID-19 test was negative. SW met with pt at bedside to discuss discharge plan. PT/OT ordered to evaluate pt for discharge needs. Pt is currently on 3L of continuous O2, which is her baseline. Renal consulted today. Pt's PCP is Dr. Tracie Chopra. SW is following to assist as needed with discharge planning.
[2020-03-08 16:25] VITALS: BP 128/59
--- NOTE | 2020-03-08 17:56 | NUR ---
ASSUMED CARE APPROX 0700. PT ALERT AND ORIENTED X4. ASSESSMENT CHARTED AND VSS. PT'S DTR AT BEDSIDE THIS AM. PT GAIT IMPROVED WITH INCREASED AMBULATION. PT DENIES ACUTE PAIN. DID REPORT HEADACHE WITH RELIEF FROM ASA. STILL WITH SHORTNESS OF BREATH W/ EXERTION. PT ON ROOM AIR AND SATS ARE WNL. DOES REQUIRE 3LNC PRN W/ SHORTNESS OF BREATH AND RECOVERS QUICKLY. DENIES N/V/D THIS SHIFT. PT RESTING COMFORTABLY IN CHAIR. WILL CONTINUE TO MONITOR.
[2020-03-08 18:49] LABS: CALCIUM 9.3 mg/dL (8.5-10.1); CREATININE 2.4 mg/dL (0.6-1.0)
[2020-03-08 20:10] VITALS: BP 145/62
[2020-03-09 00:27] VITALS: BP 145/62
[2020-03-09 04:10] VITALS: BP 138/68
[2020-03-09 05:44] LABS: ABSOLUTE NEUTROPHILS 14.3 thou/uL (1.4-8.2); BASOPHILS 0.1 % (0.0-2.0); HEMATOCRIT 24.1 % (37.0-47.0); HEMOGLOBIN 7.5 gm/dL (12.0-15.0); LYMPHOCYTES 3.9 % (24.0-44.0); MCH 28.5 pg (26.0-34.0); MCHC 31.1 g/dL (28.0-37.0); MCV 91.9 fL (80.0-100.0); MONOCYTES 2.2 % (1.0-8.0); PLATELET COUNT 197 thou/uL (150-400); POLYS 93.8 % (36.0-66.0); RBC 2.62 mil/uL (4.20-5.00); RDW 16.2 % (10.5-14.5); WBC 15.2 thou/uL (4.0-11.0)
[2020-03-09 05:55] LABS: ALBUMIN 3.1 g/dL (3.4-5.0); CALCIUM 8.5 mg/dL (8.5-10.1); CREATININE 2.2 mg/dL (0.6-1.0); PHOSPHORUS 3.5 mg/dL (2.5-4.9)
[2020-03-09 05:57] LABS: POTASSIUM 5.8 mmol/L (3.5-5.1)
[2020-03-09 07:30] VITALS: BP 147/65
[2020-03-09 12:17] LABS: % SATURATION 27 % (20-39); IRON 82 ug/dL (50-170); TIBC 300 ug/dL (250-450)
[2020-03-09 13:47] VITALS: BP 147/65
--- NOTE | 2020-03-09 13:49 | NUR ---
SW reviewed chart and spoke with nursing and attending physician. Pt is progressing towards goals for discharge. Discharge home with HH is anticipated for tomorrow. SW met with pt's dtr to discuss discharge plan. SW explained HH services. Pt's dtr is agreeable with HH services, as she does not want pt to go to a rehab/skilled facility at this time due to COVID-19. Options provided for HH agencies. No preference voiced. SW faxed referral to [facility] . Notified HH liaison of new referral. Contact info for HH placed in pt's discharge summary. Finalized discharge orders/summary will need to be faxed to HH when available. Pt's dtr will provide transportation home. SW is available to assist should needs arise. NANCIE --
[2020-03-09 15:05] VITALS: BP 141/58
--- NOTE | 2020-03-09 18:14 | NUR ---
ASSUMED CARE APPROX 0700. PT ALERT AND ORIENTED X4. ASSESSMENT CHARTED AND VSS. PT DENIES ACUTE PAIN. STILL W/ SOA W/ EXERTION AND RECOVERS QUICKLY WITH 3LNC. PT TO BE DISCHARGED TOMORROW AND ANXIOUS TO GO HOME. IV FLUIDS D/C'D PER ORDERS. STILL PROGRESSING TOWARDS PLAN OF CARE GOALS.
[2020-03-09 19:07] VITALS: BP 134/51
--- NOTE | 2020-03-09 21:55 | NUR ---
PT UP IN [place]AR[place] CHAIR WATCHING TV TALKING ON THE PHONE. PT REQUESTED PRN FOR HEADACHE AND PROVIDED. PT STEADY SBA TO BSC. BLUNTED AFFECT, [facility] E[facility] CONTACT. O2 PER NC 3L, LUNGS WITH WHEEZES. PT DECLINED HS SNACK. PT REPORTS PLAN ON DC IN AM.
[2020-03-10 04:43] VITALS: BP 145/74
[2020-03-10 06:09] LABS: HEMATOCRIT 24.2 % (37.0-47.0); HEMOGLOBIN 7.7 gm/dL (12.0-15.0); MCH 28.6 pg (26.0-34.0); MCHC 31.6 g/dL (28.0-37.0); MCV 90.5 fL (80.0-100.0); RBC 2.68 mil/uL (4.20-5.00); RDW 15.9 % (10.5-14.5); WBC 15.8 thou/uL (4.0-11.0)
[2020-03-10 06:21] LABS: ALBUMIN 3.1 g/dL (3.4-5.0); CREATININE 2.3 mg/dL (0.6-1.0); PHOSPHORUS 3.5 mg/dL (2.5-4.9); POTASSIUM 4.8 mmol/L (3.5-5.1)
[2020-03-10 07:25] VITALS: BP 109/61
[2020-03-10 15:11] VITALS: BP 136/65
--- NOTE | 2020-03-10 15:45 | NUR ---
ASSUMED CARE OF PT AT 0700. PT AOX3-4 IN NO ACUTE DISTRESS. PRN O2. UP W/ SBA TO BSC. REMAINS WEAK. CALLS OUT APPROPRIATELY. ANTICIPATE D/C SOON.
[2020-03-10 19:15] VITALS: BP 146/76
[2020-03-11 03:33] VITALS: BP 153/77
--- NOTE | 2020-03-11 04:57 | NUR ---
ASSUMED CARE AT 1900. PT DENIES PAIN OR NAUSEA. O2 SATS IN UPPER 90'S ON 3L, MILDLY SOA WITH EXERTION. PT TRANSFERS SELF TO BSC BUT IS SHAKY AND TIRES QUICKLY. STILL NEED OCCULT STOOL SAMPLE. NEW IV STARTED FOR ABX AND SOLUMEDROL. SPOKE WITH PT'S DAUGHTER ON PHONE AND GAVE UPDATE. NO FURTHER CONCERNS, WILL CONTINUE TO MONITOR.
[2020-03-11 06:09] LABS: ABSOLUTE NEUTROPHILS 12.5 thou/uL (1.4-8.2); BASOPHILS 0.1 % (0.0-2.0); HEMATOCRIT 24.7 % (37.0-47.0); HEMOGLOBIN 7.8 gm/dL (12.0-15.0); LYMPHOCYTES 5.2 % (24.0-44.0); MCH 28.7 pg (26.0-34.0); MCHC 31.7 g/dL (28.0-37.0); MCV 90.7 fL (80.0-100.0); MONOCYTES 4.9 % (1.0-8.0); PLATELET COUNT 194 thou/uL (150-400); POLYS 89.8 % (36.0-66.0); RBC 2.72 mil/uL (4.20-5.00); WBC 13.9 thou/uL (4.0-11.0)
[2020-03-11 06:24] LABS: CREATININE 2.2 mg/dL (0.6-1.0); POTASSIUM 4.8 mmol/L (3.5-5.1)
[2020-03-11 07:14] VITALS: BP 144/66
[2020-03-11 15:10] VITALS: BP 153/80
[2020-03-11 19:27] VITALS: BP 143/81
[2020-03-12 03:22] VITALS: BP 151/68
--- NOTE | 2020-03-12 05:00 | NUR ---
ASSUMED CARE AT 1900. PT C/O HEADACHE RELIEVED W/ TYLENOL. DENIES NAUSEA, REPORTS FEELING BETTER SINCE HAVE BM DURING THE DAY. DENIES SOB, SATS WELL ON RA. TRANSFERS SELF TO BSC WITH SUPERVISION, BUT IS FATIGUED EASILY. NO OTHER CONCERNS, WILL CONTINUE TO MONITOR.
[2020-03-12 07:11] VITALS: BP 143/62
[2020-03-12 09:06] VITALS: BP 143/62
[2020-03-12] MEDS ORDERED: PREDNISONE 20 M20 MG PO (11:46)
[2020-03-12] MEDS ORDERED: AZITHROMYCIN 2250 MG PO (11:46)
[2020-03-12] MEDS ORDERED: IPRAT-ALBUT 0.5-3 ML INH (11:46)
[2020-03-12] MEDS ORDERED: ADULT LOW DOSE81 MG PO (11:46)
[2020-03-12] MEDS ORDERED: DEMADEX20 MG PO (11:46)
[2020-03-12] MEDS ORDERED: MIRALAX17 GM PO (11:46)
[2020-03-12] MEDS ORDERED: SODIUM BICARBO650 M3 PO (11:46)
[2020-03-12] MEDS ORDERED: PROTONIX40 M1 PO (11:46)
[2020-03-12] MEDS ORDERED: ACETAMINOPHEN325 M1 PO (11:46)
--- NOTE | 2020-03-12 12:28 | NUR ---
ASSUMMED PT CARE AT APPROXIMATELY 0700. PT A&O X4. ASSESSMENT CHARTED. FALL PRECAUTIONS IN PLACE. PT DENIES HAVING CHEST PAIN. PT STATED SHE HAS SOB ON EXERSION. O2 SAT STABLE. PT STATED SHE HAD A HEADACHE. INFORMED DR. TAYLOR. NEW MEDS ORDERED. PT DENIED WANTING NON-PHARMACUTICAL PAIN INTERVENTIONS. PT AMBULATES STEADY C STANDBY TO COMMODE. INFORMED DR. TAYLOR OF MG. NO NEW ORDERS. GAVE REPORT TO JAVIER RIVERA AT APPROXIMATELY 1200. JAVIER RIVERA STATED UNDERSTANDING AND DENIED HAVING FURTHER QUESTIONS. PT COMFORTABLE IN BED. PT DENIES HAVING FURTHER CONCERNS.
--- NOTE | 2020-03-12 12:33 | NUR ---
Assumed care from JAVIER Ludwig at approximately 12pm. Received pt awake on bed. A+Ox4, forgetful. On room air. Vital signs stable. On carb conrolled diet- tolerating well; no nausea, no vomiting and no abdominal pain noted. On blood sugar monitoring- taken and recorded, with sliding scale ordered- given as prescribed. Continent of bowel and bladder- able to use bedside commode with standby assist and gait belt. Falls bundle in place. With SL at L wrist- intact and flushing well. For possible discharge today as reported- a/w physician's order- pt updated. Assisted in ADLs. Pt seen and examined by Dr Agarwal this afternoon- discharge orders made, a/w CM's input re: home health. Dr Agarwal called back, ordered RT pulse oximetry studies prior to discharge. To continue monitoring patient.
--- NOTE | 2020-03-12 14:24 | NUR ---
DISCHARGE NOTE: STEVE reviewed chart and spoke with nursing and attending physician. Pt is medically stable for discharge home today with HH services. STEVE spoke with pt's dtr, Meredith, via phone to discuss discharge. Pt's dtr will be at [facility] to pick up operator pt after 1530 this afternoon. STEVE confirmed pt's home address and phone number. STEVE faxed finalized discharge orders/summary to Jessica and spoke with Corinne in intake to notify of discharge orders. Pt's dtr will be staying with pt after discharge. RT did rest/exercise oximetry. Pt's O2 sats remained above 90%. Pt has PRN home O2 through [employer]. Contact info for HH placed in pt's discharge summary. No additional SW needs identified at this time, but is available to assist should needs arise.
== END 2020-03-12 17:42 | disposition home health service (06) | DRG 871 ==
LOC: ER 17:45 → ICU 20:35 → EROBS 20:35 → 3W 20:35 → ICU 03-07 04:00 → 3W 03-07 23:47
PROVIDERS: Emergency Medicine; Hospitalist; Internal Medicine; Nurse Practitioner Family; ADMIT Internal Medicine; ATTEND Internal Medicine
DX: A41.9 Sepsis, unspecified organism (principal); J15.9 Unspecified bacterial pneumonia; J96.21 Acute and chronic respiratory failure with hypoxia; J44.1 Chronic obstructive pulmonary disease with (acute) exacerbation; N39.0 Urinary tract infection, site not specified; N18.3 Chronic kidney disease, stage 3 (moderate); E11.22 Type 2 diabetes mellitus with diabetic chronic kidney disease; I12.9 Hypertensive chronic kidney disease with stage 1 through stage 4 chronic kidney disease, or unspecified chronic kidney disease; E78.00 Pure hypercholesterolemia, unspecified; E03.9 Hypothyroidism, unspecified; I27.20 Pulmonary hypertension, unspecified; E87.5 Hyperkalemia; E78.5 Hyperlipidemia, unspecified; D64.9 Anemia, unspecified; G47.00 Insomnia, unspecified; N39.3 Stress incontinence (female) (male); A08.4 Viral intestinal infection, unspecified; E66.9 Obesity, unspecified; Z20.828 Contact with and (suspected) exposure to other viral communicable diseases; Z99.81 Dependence on supplemental oxygen; Z86.73 Personal history of transient ischemic attack (TIA), and cerebral infarction without residual deficits; Z90.710 Acquired absence of both cervix and uterus; Z80.0 Family history of malignant neoplasm of digestive organs; Z90.13 Acquired absence of bilateral breasts and nipples; Z82.49 Family history of ischemic heart disease and other diseases of the circulatory system; Z79.4 Long term (current) use of insulin; Z79.899 Other long term (current) drug therapy; Z79.82 Long term (current) use of aspirin; Z88.5 Allergy status to narcotic agent; Z68.36 Body mass index [BMI] 36.0-36.9, adult
CPT/HCPCS: 10080; 10879

== ENCOUNTER → 2020-04-20 | Outpatient (CLI) | payer OTHER ==
[~2020-04-20] MED LIST changes: +ACETAMINOPHEN325 M1 PO; +ADULT LOW DOSE81 MG PO; +AZITHROMYCIN 2250 MG PO; +CHILDREN'S ASPI81 M1 PO; +DEMADEX20 MG PO; +IPRAT-ALBUT 0.5-3 ML INH; +LEVEMIR100 UNIT/1 SUBQ; +MIRALAX17 GM PO; +PREDNISONE 20 M20 MG PO; +PROTONIX40 M1 PO; +SODIUM BICARBO650 M3 PO; +SPIRONOLACTONE50 MG PO; +[UNRECOGNIZED DRUG - OTHER] PO
== END ==
LOC: SJCVC 13:44
PROVIDERS: ATTEND Internal Medicine
DX: I49.9 Cardiac arrhythmia, unspecified (principal); R94.31 Abnormal electrocardiogram [ECG] [EKG]; I13.0 Hypertensive heart and chronic kidney disease with heart failure and stage 1 through stage 4 chronic kidney disease, or unspecified chronic kidney disease; E11.22 Type 2 diabetes mellitus with diabetic chronic kidney disease; N18.4 Chronic kidney disease, stage 4 (severe); I50.32 Chronic diastolic (congestive) heart failure; E11.8 Type 2 diabetes mellitus with unspecified complications; E78.5 Hyperlipidemia, unspecified; J44.9 Chronic obstructive pulmonary disease, unspecified; I25.2 Old myocardial infarction; E78.00 Pure hypercholesterolemia, unspecified; Z79.82 Long term (current) use of aspirin; Z79.4 Long term (current) use of insulin; Z79.899 Other long term (current) drug therapy; Z87.891 Personal history of nicotine dependence

== ENCOUNTER 2021-01-20 11:27 | Inpatient (IN) | payer OTHER ==
[~2021-01-20] VITALS: Ht 160 cm; Wt 92.9 kg
[2021-01-20 11:27] VITALS: BP 132/72
[2021-01-20] MEDS ORDERED: LOSARTAN POTAS100 MG PO (11:43)
[2021-01-20] MEDS ORDERED: TRADJENTA5 MG (11:44)
[2021-01-20 11:54] LABS: ABSOLUTE NEUTROPHILS 5.5 thou/uL (1.4-8.2); BASOPHILS 0.5 % (0.0-2.0); EOSINOPHILS 1.2 % (0.0-3.0); HEMOGLOBIN 10.1 gm/dL (12.0-15.0); LYMPHOCYTES 14.6 % (24.0-44.0); MCH 28.6 pg (26.0-34.0); MCHC 31.6 g/dL (28.0-37.0); MCV 90.5 fL (80.0-100.0); MONOCYTES 6.4 % (1.0-8.0); PLATELET COUNT 149 thou/uL (150-400); POLYS 77.3 % (36.0-66.0); RBC 3.53 mil/uL (4.20-5.00); WBC 7.1 thou/uL (4.0-11.0)
[2021-01-20 11:58] LABS: ANION GAP 9 mmol/L (7-16); BUN 56 mg/dL (7-18); CALCIUM 9.7 mg/dL (8.5-10.1); CHLORIDE 106 mmol/L (98-107); CO2 31 mmol/L (21-32); CREATININE 2.2 mg/dL (0.6-1.0); GLUCOSE 228 mg/dL (74-106); POTASSIUM 3.3 mmol/L (3.5-5.1); SODIUM 146 mmol/L (136-145)
[2021-01-20 12:09] LABS: ALBUMIN 3.7 g/dL (3.4-5.0); SGOT 36 U/L (15-37); SGPT 66 U/L (30-65); TOTAL BILIRUBIN 0.3 mg/dL (0.2-1.0); TOTAL PROTEIN 7.4 g/dL (6.4-8.2); TROPONIN-I <0.06 ng/mL (<0.06)
[2021-01-20 12:19] LABS: BE(vivo) 3.1 mmol/L (-2 to +3); HCO3 28.8 mmol/L (22.0-26.0); PCO2 49.4 mmHg (35.0-45.0); PO2 103.1 mmHg (80.0-100.0); pH 7.384 (7.360-7.450); sO2 97.6 % (92.0-98.0)
[2021-01-20 14:02] VITALS: BP 132/65
[2021-01-20 14:12] VITALS: BP 120/50
--- NOTE | 2021-01-20 14:44 | EKG ---
[place] [address] [facility] [place] [address] ELECTROCARDIOGRAM REPORT Name: WILFRIDOPEDRO Room #: 213-P ADM IN M.R.#: [id number] Admission: 01/20/21 Attend Phys: Caprice Owen MD Discharge: Date of : 35 Report #: [id number] [facility] ED Test Date: 2021-01-20 Test Time: 11:41:38 Pat Name: PEDRO ANNA Department: Room: 213 Gender: F Wood Finisher: FRANCIA : 1935 Requested By: Santiago Lopez Order Number: [id number] MD: Bashir Bruno Measurements Intervals [place] Rate: 79 P: 61 NM: 203 QRS: 1 QRSD: 99 T: 139 QT: 393 QTc: 451 Interpretive Statements Sinus rhythm Probable left atrial enlargement LVH with secondary repolarization abnormality Inferior infarct, old Anterior Q waves, possibly due to LVH Baseline wander in lead(s) V2 Compared to ECG 03/06/2020 19:23:07 Left ventricular hypertrophy now present Early repolarization now present Q waves now present Sinus bradycardia no longer present Electronically Signed On 01-20-2021 14:43:56 CDT by Bashir Bruno [email or web address] <ELECTRONICALLY SIGNED> By: Bashir Bruno MD, [facility] 01/20/21 1443 1141 1141 Bashir Bruno MD, [facility] /EPI
[2021-01-20 14:54] VITALS: BP 138/66
[2021-01-20 16:55] LABS: FOLIC ACID 8.9 ng/mL (8.6-58.9)
[2021-01-20 17:05] VITALS: BP 138/66
[2021-01-20 17:07] LABS: URINE BILIRUBIN NEGATIVE (Negative); URINE BLOOD NEGATIVE (Negative); URINE CLARITY CLEAR; URINE COLOR YELLOW; URINE GLUCOSE-RANDOM* TRACE (Negative); URINE KETONES NEGATIVE (Negative); URINE LEUKOCYTES-REFLEX NEGATIVE (Negative); URINE NITRITE-REFLEX NEGATIVE (Negative); URINE PROTEIN (DIPSTICK) NEGATIVE (Negative); URINE UROBILINOGEN 0.2 E.U./dl (0.2-1.0)
[2021-01-20 19:30] VITALS: BP 152/69
[2021-01-21 04:15] LABS: ABSOLUTE NEUTROPHILS 4.7 thou/uL (1.4-8.2); BASOPHILS 0.7 % (0.0-2.0); EOSINOPHILS 2.4 % (0.0-3.0); HEMATOCRIT 28.5 % (37.0-47.0); HEMOGLOBIN 9.1 gm/dL (12.0-15.0); LYMPHOCYTES 15.9 % (24.0-44.0); MCH 28.5 pg (26.0-34.0); MCHC 31.9 g/dL (28.0-37.0); MCV 89.4 fL (80.0-100.0); PLATELET COUNT 142 thou/uL (150-400); RBC 3.18 mil/uL (4.20-5.00); RDW 14.8 % (10.5-14.5); WBC 6.6 thou/uL (4.0-11.0)
[2021-01-21 04:20] VITALS: BP 140/67
[2021-01-21 04:34] LABS: ALBUMIN 3.1 g/dL (3.4-5.0); CALCIUM 9.3 mg/dL (8.5-10.1); MAGNESIUM 1.9 mg/dL (1.8-2.4); PHOSPHORUS 3.6 mg/dL (2.6-4.7); POTASSIUM 4.1 mmol/L (3.5-5.1); TOTAL BILIRUBIN 0.2 mg/dL (0.2-1.0); TOTAL PROTEIN 6.6 g/dL (6.4-8.2)
[2021-01-21 07:25] VITALS: BP 132/61
--- NOTE | 2021-01-21 10:32 | 2DMMODE ---
[facility] [place] [address] 2 D/M-MODE ECHOCARDIOGRAM Name: PEDRO ANNA Room #: 213-P ADM IN M.R.#: [id number] Admission: 01/20/21 Attend Phys: Caprice Owen MD Discharge: Date of : 35 Report #: [id number] THIS REPORT FOR: cc: Tracie Chopra MD, Nora P. MD Lundgren, Craig H. MD [facility] ~ APPROVED REPORT Study performed: 01/21/2021 09:48:06 EXAM: Comprehensive 2D, Doppler, and color-flow Echocardiogram Patient Location: Bedside Room #: 213 Status: routine BSA: 1.95 HR: 63 bpm BP: 132/61 mmHg Rhythm: NSR Other Information Study Quality: Good Indications Chest Pain Hx: Mild CAD, COPD, HTN, HLP, DM. 2D Dimensions RVDd: 40.84 mm IVSd: 12.86 (7-11mm) LVOT Diam: 21.43 (18-24mm) LVDd: 52.61 mm PWd: 12.84 (7-11mm) LVDs: 33.51 (25-40mm) Left Atrium: 41.54 (27-40mm) Aortic Root: 35.36 mm Volumes Left Atrial Volume (Systole) Single Plane 4CH: 69.15 mL Single Plane 2CH: 76.98 mL LA ESV Index: 41.00 mL/m2 Aortic Valve AoV Peak Fausto.: 1.70 m/s AO Peak Gr.: 11.60 mmHg LVOT Max P.35 mmHg LVOT Max V: 1.36 m/s [facility] [place] [address] 2 D/M-MODE ECHOCARDIOGRAM Name: PEDRO ANNA Room #: 213-P [facility] IN .R.#: [id number] Admission: 01/20/21 Attend Phys: Caprice Owen, Discharge: Date of : 35 Report #: [id number] ROSA Vmax: 2.87 cm2 Mitral Valve E/A Ratio: 0.8 MV Decel. Time: 260.84 ms MV E Max Fausto.: 0.99 m/s MV A Fausto.: 1.25 m/s MV PHT: 75.64 ms IVRT: 62.28 ms Pulmonary Valve PV Peak Fausto.: 0.89 m/s PV Peak Gr.: 3.19 mmHg Pulmonary Vein P Vein S: 0.46 m/s P Vein A: 0.41 m/s P Vein D: 0.33 m/s P Vein A Dur.: 114.2 msec P Vein S/D Ratio: 1.39 Tricuspid Valve TR Peak Fausto.: 3.12 m/s RAP Estimate: 10.00 mmHg TR Peak Gr.: 39.00 mmHg PA Pressure: 49.00 mmHg Left Ventricle The left ventricle is normal size. There is normal LV segmental wall motion. Mild concentric left ventricular hypertrophy. Left ventricular systolic function is normal. LVEF is 65%. Mild diastolic dysfunction Right Ventricle The right ventricle is normal size. The right ventricular systolic function is normal. Atria Mild biatrial enlargement. Aortic Valve The aortic valve is normal in structure. No aortic regurgitation is present. There is no aortic valvular stenosis. Mitral Valve Moderate mitral annular calcification. Mild mitral regurgitation. No evidence of mitral valve stenosis. Tricuspid Valve The tricuspid valve is normal in structure. Mild tricuspid [facility] [place] [address] 2 D/M-MODE ECHOCARDIOGRAM Name: PEDRO ANNA Room #: 213-P ADM IN M.R.#: [id number] Admission: 01/20/21 Attend Phys: Caprice Owen, Discharge: Date of : 35 Report #: [id number] regurgitation. Estimated PAP is 45mmHg. Pulmonic Valve The pulmonary valve is normal in structure. Trace pulmonic regurgitation. Great Vessels The aortic root is normal in size. IVC is dilated and collapses <50% with inspiration. Pericardium There is no pericardial effusion. <Conclusion> Left ventricular systolic function is normal. There is normal LV segmental wall motion. LVEF is 65%. Mild diastolic dysfunction Mild biatrial enlargement. The aortic valve is normal in structure. No aortic regurgitation or stenosis Moderate mitral annular calcification. Mild mitral regurgitation. Mild tricuspid regurgitation. Estimated pulmonary artery pressure of 45mmHg. There is no pericardial effusion. <ELECTRONICALLY SIGNED> By: Alejandro Key MD, FACC 01/21/21 103 103 103 Alejandro Key MD, FAC /INF
[2021-01-21 12:10] VITALS: BP 139/60
--- NOTE | 2021-01-21 14:09 | NUR ---
net with patient who admits with chest pain. Patient resides at home in [facility]. All needs on one level. She uses no assistive device but has a walker if needed. She does not drive. She reports her dtr takes her to apts and grocery shopping. She reports independent with adls. Sp with physical therapy who discharged the patient. PCP Dr Tracie Chopra. [facility] following.
[2021-01-21 16:05] VITALS: BP 164/59
--- NOTE | 2021-01-21 16:40 | NUR ---
PT RESTING COMFORTABLY. RESTING PROTION OF STRESS TEST COMPLETED TODAY. PT WILL BE NPO AFTER MIDNIGHT FOR 2ND PORTION OF STRESS TEST TOMORROW. PT AFEBRILE, ADEQUATE UOP, NO BM, APPROPRIATE APPETITE. PT/HALFWAY HOUSE COUNSELOR HAVE BEEN UPDATED AND EDUCATED ON PT CONDITION AND POC. PT SLOWLY PROGRESSING TOWARDS POC.
[2021-01-21 19:41] VITALS: BP 157/54
--- NOTE | 2021-01-22 03:27 | NUR ---
ASSESSMENTS CHARTED, MEDS CHARTED GIVEN. PATIENT REQUESTING 2 PRUNE JUICES AT START OF SHIFT. PATIENT SINUS RHYTHM AT START OF SHIFT, WENT INTO JUNCTIONAL TACHYCARDIA FOR AN HOUR, FINALLY CAME DOWN AFTER MED AND VAGAL MANUOEUVRES. PATIENT HAD LARGE BM, SAMPLE SENT TO LAB. NPO SINCE MIDNIGHT FOR SECOND HALF OF STRESS TEST. PATIENT WAS IMANI DURING LAST PART OF SHIFT. FALL PRECAUTIONS IN PLACE DURING SHIFT. PATIENT STAND AND PIVOT TO BSC, AND RECLINER FROM BED.
[2021-01-22 03:49] VITALS: BP 147/66
[2021-01-22 04:37] LABS: PROTIME 10.9 Seconds (10.5-12.1)
--- NOTE | 2021-01-22 08:46 | EKG ---
[place] [address] [facility] [email or web address] [address] ELECTROCARDIOGRAM REPORT Name: PEDRO ANNA Room #: 213- ADM IN M.R.#: [id number] Admission: 01/20/21 Attend Phys: Caprice Owen MD Discharge: Date of : 35 Report #: [id number] [facility] Test Date: 2021-01-21 Test Time: 23:28:00 Pat Name: PEDRO ANNA Department: Room: 213 P Gender: F Video Producer: SARTHAK : 1935 Requested By: Sabina Joshi Order Number: [id number] MD: Bashir Bruno Measurements Intervals [place] Rate: 131 P: [place]: QRS: -17 QRSD: 102 T: 152 QT: 332 QTc: 491 Interpretive Statements Suspect AFIB LVH with secondary repolarization abnormality Inferior infarct, old Compared to ECG 01/20/2021 11:41:38 Junctional tachycardia now present Sinus rhythm no longer present Q waves no longer present Myocardial infarct finding still present Electronically Signed On 01-22-2021 8:46:01 CDT by Bashir Bruno [email or web address] <ELECTRONICALLY SIGNED> By: Bashir Bruno MD, FACC 01/22/21 0846 2328 2328 Bashir Bruno MD, [facility] /EPI
[2021-01-22 09:27] VITALS: BP 149/87
[2021-01-22 11:19] LABS: HEMATOCRIT 31.5 % (37.0-47.0); HEMOGLOBIN 9.8 gm/dL (12.0-15.0); MCH 27.6 pg (26.0-34.0); MCHC 31.2 g/dL (28.0-37.0); MCV 88.3 fL (80.0-100.0); RBC 3.56 mil/uL (4.20-5.00); RDW 14.7 % (10.5-14.5); WBC 8.9 thou/uL (4.0-11.0)
[2021-01-22 11:32] LABS: CALCIUM 9.9 mg/dL (8.5-10.1); CREATININE 1.7 mg/dL (0.6-1.0); POTASSIUM 4.1 mmol/L (3.5-5.1)
[2021-01-22] MEDS ORDERED: NYSTATIN-TRIAMC15 GM TOP (12:15)
[2021-01-22] MEDS ORDERED: PEPCID20 MG PO (12:15)
[2021-01-22] MEDS ORDERED: IPRAT-ALBUT 0.5-3 ML INH (12:15)
[2021-01-22] MEDS ORDERED: PREDNISOLONE SO10 MG PO (13:39)
[2021-01-22] MEDS ORDERED: DOXYCYCLINE HY100 M3 PO (13:39)
[2021-01-22] MEDS ORDERED: PREDNISONE 20 M20 MG PO (14:18)
[2021-01-22 14:44] VITALS: BP 156/79
--- NOTE | 2021-01-22 15:11 | NUR ---
ASSESSMENT CHARTED - MEDS PER MAR - NO CO'S OF PAIN OR NAUSEA. CHARY DIET AND FLUIDS. UP TO THE BSC WITH STBY ASSIST. 2ND HALF OF STRESS TEST COMPLETED THIS AM. NO CO'S OF PAIN. PT WITH HR IIN THE UPPER 40'S AND LOW 50'S. DR TAYLOR AND MANOHAR FROM CARDIAOLOGY NOTIFIED - PT ASSYMTOMATIC. STATED SHE COULD GO HOME. INSTRUCTION RE HOME MEDS/ CARE AND FOLLOW UP GIVEN TO PATIENT STATED UNDERSTANDING OF INSTRUCTION GIVEN - WAITING FOR DAUGHTER TO PASTA MAKER AND TRANSPOSRT HOME.
[2021-01-23 00:06] LABS: GLYCOHEMOGLOBIN (HGB A1C) 8.5 % (4.8-5.6)
== END 2021-01-22 16:12 | disposition home or self-care (01) | DRG 683 ==
LOC: ER 11:27 → 2N 14:18 → EROBS 14:18 → 2N 14:20
PROVIDERS: Emergency Medicine; Hospitalist; ADMIT Internal Medicine; ATTEND Internal Medicine
DX: N17.9 Acute kidney failure, unspecified (principal); J44.1 Chronic obstructive pulmonary disease with (acute) exacerbation; J96.11 Chronic respiratory failure with hypoxia; N18.4 Chronic kidney disease, stage 4 (severe); D69.6 Thrombocytopenia, unspecified; E78.00 Pure hypercholesterolemia, unspecified; E11.22 Type 2 diabetes mellitus with diabetic chronic kidney disease; I12.9 Hypertensive chronic kidney disease with stage 1 through stage 4 chronic kidney disease, or unspecified chronic kidney disease; D63.8 Anemia in other chronic diseases classified elsewhere; I27.20 Pulmonary hypertension, unspecified; I25.10 Atherosclerotic heart disease of native coronary artery without angina pectoris; F41.9 Anxiety disorder, unspecified; E87.6 Hypokalemia; E03.9 Hypothyroidism, unspecified; Z20.822 Contact with and (suspected) exposure to COVID-19; Z86.73 Personal history of transient ischemic attack (TIA), and cerebral infarction without residual deficits; Z90.13 Acquired absence of bilateral breasts and nipples; Z85.3 Personal history of malignant neoplasm of breast; Z79.4 Long term (current) use of insulin; Z79.899 Other long term (current) drug therapy; Z79.82 Long term (current) use of aspirin; Z88.8 Allergy status to other drugs, medicaments and biological substances
CPT/HCPCS: 10081

== ENCOUNTER 2021-05-23 14:33 | Emergency (ER) | payer OTHER ==
[~2021-05-23] VITALS: Ht 160 cm; Wt 93.4 kg
[~2021-05-23 14:33] MED LIST changes: +DOXYCYCLINE HY100 M3 PO; +LOSARTAN POTAS100 MG PO; +NYSTATIN-TRIAMC15 GM TOP; +PEPCID20 MG PO; +PREDNISOLONE SO10 MG PO; +TRADJENTA5 MG
[2021-05-23 14:51] LABS: ABSOLUTE NEUTROPHILS 4.3 thou/uL (1.4-8.2); BASOPHILS 0.4 % (0.0-2.0); EOSINOPHILS 2.4 % (0.0-3.0); HEMOGLOBIN 10.3 gm/dL (12.0-15.0); MCH 28.8 pg (26.0-34.0); MCHC 32.2 g/dL (28.0-37.0); MCV 89.4 fL (80.0-100.0); MONOCYTES 9.1 % (1.0-8.0); PLATELET COUNT 150 thou/uL (150-400); POLYS 67.1 % (36.0-66.0); RBC 3.57 mil/uL (4.20-5.00); RDW 14.8 % (10.5-14.5); WBC 6.4 thou/uL (4.0-11.0)
[2021-05-23 15:14] LABS: CALCIUM 9.2 mg/dL (8.5-10.1); POTASSIUM 3.9 mmol/L (3.5-5.1)
[2021-05-23 15:24] LABS: ALBUMIN 3.4 g/dL (3.4-5.0); TOTAL BILIRUBIN 0.2 mg/dL (0.2-1.0)
[2021-05-23] MEDS ORDERED: DOXAZOSIN MESYLA8 MG PO (17:45)
[2021-05-23] MEDS ORDERED: LOSARTAN POTAS100 MG PO (17:46)
[2021-05-23 20:18] VITALS: BP 168/75
--- NOTE | 2021-05-24 09:23 | EKG ---
[facility] [place] [address] ELECTROCARDIOGRAM REPORT Name: PEDRO ANNA Room #: [facility]#: [id number] Admission: 05/23/21 Attend Phys: Discharge: 05/23/21 Date of : 35 Report #: [id number] [facility] ED Test Date: 2021-05-23 Test Time: 15:38:11 Pat Name: PEDRO ANNA Department: Room: Gender: F Leather Softener: MINH : 1935 Requested By: Santiago Lopez Order Number: [id number] MD: Rahul Workman Measurements Intervals [place] Rate: 65 P: 37 [place]: 195 QRS: -29 QRSD: 151 T: 141 QT: 450 QTc: 468 Interpretive Statements Sinus rhythm Ventricular premature complex Probable left atrial enlargement Left bundle branch block Compared to ECG 05/23/2021 14:30:35 Ventricular premature complex(es) now present Sinus tachycardia no longer present Electronically Signed On 05-24-2021 9:23:41 CDT by Rahul Workman [email or web address] <ELECTRONICALLY SIGNED> By: Rahul Workman MD 05/24/21922 37 37 Rahul Workman MD /JOSÉ
--- NOTE | 2021-05-24 09:33 | EKG ---
[address] [address] ELECTROCARDIOGRAM REPORT Name: PEDRO ANNA [id number] Admission: 05/23/21 Attend Phys: Discharge: 05/23/21 Date of : 35 Report #: [id number] [facility] ED Test Date: 2021-05-23 Test Time: 14:30:35 Pat Name: PEDRO ANNA Department: Room: Gender: F Emergency Operator: MINH : 1935 Requested By: Santiago Lopez Order Number: [id number] MD: Rahul Workman Measurements Intervals [place] Rate: 136 P: 0 LA: 98 QRS: 105 QRSD: 133 T: -86 QT: 352 QTc: 530 Interpretive Statements Sinus tachycardia Nonspecific intraventricular conduction delay Compared to ECG 01/21/2021 23:28:00 Intraventricular conduction delay now present Atrial fibrillation no longer present Electronically Signed On 05-24-2021 9:33:23 CDT by Rahul Workman [email or web address] <ELECTRONICALLY SIGNED> By: Rahul Workman MD 05/24/2133 1430 1430 MD ADELAIDE Davis
== END 2021-05-23 20:20 | disposition home or self-care (01) ==
LOC: ER 14:33
PROVIDERS: Emergency Medicine
DX: R07.89 Other chest pain (principal); J44.9 Chronic obstructive pulmonary disease, unspecified; E11.9 Type 2 diabetes mellitus without complications; I12.9 Hypertensive chronic kidney disease with stage 1 through stage 4 chronic kidney disease, or unspecified chronic kidney disease; N18.30 Chronic kidney disease, stage 3 unspecified; Z90.13 Acquired absence of bilateral breasts and nipples; Z79.82 Long term (current) use of aspirin; Z79.899 Other long term (current) drug therapy; Z79.891 Long term (current) use of opiate analgesic; Z79.4 Long term (current) use of insulin; Z88.5 Allergy status to narcotic agent; Z88.8 Allergy status to other drugs, medicaments and biological substances; Z87.891 Personal history of nicotine dependence

== ENCOUNTER 2021-06-02 20:21 | Observation (INO) | payer OTHER ==
[~2021-06-02] VITALS: Ht 160 cm; Wt 96.2 kg
--- NOTE | ~2021-06-02 | EMS ---
[address] [address] EMS Patient Care Report Name: PEDRO ANNA Room #: REG MARCELLUS William#: [id number] Admission: 06/02/21 Attend Phys: Discharge: Date of : 35 Report #: [id number] THIS REPORT FOR: //name// Report Transmitted: 06/02/2021 22:27 EMS Care Summary [place], [place]/[facility] Incident [id number] @ 06/02/2021 19:29 Incident Location [address] [place], [place] [id number] Patient PEDRO ANNA Female, 86 Years 1935 Patient Address [address] [place] [address] Patient History Chronic Obstructive Pulmonary Disease (COPD),Diabetes,Hypertension (HTN),Stroke/CVA,Breast Cancer,Emphysema,Atrial Fibrillation,Mastectomy, Patient Allergies No known allergies, Patient Medications Doxazosin, Furosemide, Simvastatin, Famotidine, Chief Complaint anterior neck pain Disposition Transported No Lights/[place] Reason Breathing Problem Transported To [facility] Narrative arrived on scene and located patient conscious and breathing sitting in a chair at home patient reports has pain to the front of her neck states she was seen at hospital last week for the same thing and could not [place] [address] EMS Patient Care Report Name: PEDRO ANNA Room #: REG Stewart#: [id number] Admission: 06/02/21 Attend Phys: Discharge: Date of : 35 Report #: [id number] was and is requesting transport back to the hospital patient denies chest pain pressure or heaviness denies soa is on constant oxygen at 3 lpm patient denies falls or trauma patient transported without incident report given to radius corner machine operator Initial Vitals @20:15P: 78,R: 20,BP: 148/67,GCS: 15,Revised Trauma: 12, @19:46P: 81,R: 24,BP: 137/75,Pain: 8/10,GCS: 15,Glucose: 232,SpO2: 98,Revised Trauma: 12, @20:11P: 73,R: 20,BP: 135/73,Pain: 8/10,GCS: 15,Revised Trauma: 12, Assessments @19:40MENTAL:Place Oriented,Event Oriented,Time Oriented,Person Oriented,SKIN:HEENT:Neck/Airway: Other,Head/Face: No Abnormalities,LUNG SOUNDS:General: No Abnormalities,ABDOMEN:General: No Abnormalities,PELVIS//GI:No Abnormalities,EXTREMITIES:Capillary Refill: Right Upper: < 2 Sec,Capillary Refill: Left Upper: < 2 Sec,Left Arm: No Abnormalities,Right Arm: No Abnormalities,Left Leg: No Abnormalities,Right Leg: No Abnormalities,PULSE:Radial: 2+ Normal,NEURO:No Abnormalities, Impression Pain (Non-Traumatic) Procedures @19:40ALS AssessmentResponse: UnchangedSucceeded@19:423-Lead ECGResponse: UnchangedSucceeded@19:45Saline Lock 0cc (20 ga) Site: Forearm-LeftResponse: UnchangedFailed@19:47Saline Lock 0cc (20 ga) Site: Hand-LeftResponse: UnchangedFailed Timeline 19:29,Call Received 19:29,Dispatch Notified 19:29,Dispatched 19:30,En Route 19:39,On Scene 19:40,At Patient 19:40,ALS Assessment,Response: UnchangedSucceeded, 19:42,3-Lead ECG,Response: UnchangedSucceeded, 19:45,Saline Lock 0cc 20 ga Site: Forearm-Left,Response: UnchangedFailed, 19:46,BP: 137/75 M,PULSE: 81,RR: 24 R,SPO2: 98 Ox,ETCO2: ,B,PAIN: 8,GCS: 15, 19:47,Saline Lock 0cc 20 ga Site: Hand-Left,Response: UnchangedFailed, 19:57,Depart Scene 20:11,BP: 135/73 M,PULSE: 73,RR: 20 R,SPO2: Ox,ETCO2: ,BG: ,PAIN: 8,GCS: 15, 20:15,BP: 148/67 M,PULSE: 78,RR: 20 R,SPO2: Ox,ETCO2: ,BG: ,PAIN: ,GCS: 15, 20:16,At Destination 20:37,Call Closed [facility] [address] [place] [address] EMS Patient Care Report Name: PEDRO ANNA Room #: BHVAIK William#: [id number] Admission: 06/02/21 Attend Phys: Discharge: Date of : 35 Report #: [id number] Disclaimer v1.1 Copyright 202 [employer] This EMS Care Summary contains data elements from the applicable legal record (which may be displayed differently). It is designed to provide pertinent information for the following purposes: continuity of care, clinical quality, and state data reporting. The complete legal record is available to ED staff and administrators of the receiving hospital in [facility]'s Patient Tracker. All data is provided "as is."
[~2021-06-02 20:21] MED LIST changes: +DOXAZOSIN MESYLA8 MG PO
[2021-06-02 20:26] VITALS: BP 115/57
[2021-06-02 23:17] LABS: ABSOLUTE NEUTROPHILS 5.8 thou/uL (1.4-8.2); EOSINOPHILS 2.5 % (0.0-3.0); HEMATOCRIT 29.8 % (37.0-47.0); HEMOGLOBIN 9.5 gm/dL (12.0-15.0); LYMPHOCYTES 15.8 % (24.0-44.0); MCH 28.3 pg (26.0-34.0); MCV 88.2 fL (80.0-100.0); PLATELET COUNT 142 thou/uL (150-400); POLYS 70.7 % (36.0-66.0); RBC 3.37 mil/uL (4.20-5.00); RDW 14.8 % (10.5-14.5); WBC 8.2 thou/uL (4.0-11.0)
[2021-06-02 23:41] LABS: CALCIUM 8.5 mg/dL (8.5-10.1); POTASSIUM 4.1 mmol/L (3.5-5.1)
[2021-06-02 23:47] LABS: TOTAL BILIRUBIN 0.1 mg/dL (0.2-1.0); TOTAL PROTEIN 6.3 g/dL (6.4-8.2)
--- NOTE | 2021-06-03 16:25 | EKG ---
[place] [address] [facility] [address] ELECTROCARDIOGRAM REPORT Name: PEDRO ANNA Room #: 170-10 ADM IN M.R.#: [id number] Admission: 06/03/21 Attend Phys: Karen Andrade MD Discharge: Date of : 35 Report #: [id number] [facility] ED Test Date: 2021-06-02 Test Time: 23:18:54 Pat Name: PEDRO ANNA Department: Room: 170 Gender: F Noxious Weeds And Pest Inspector: soren : 1935 Requested By: Earl Cifunetes Order Number: [id number] MD: Bashir Bruno Measurements Intervals [place] Rate: 57 P: 37 LA: 186 QRS: -24 QRSD: 152 T: 145 QT: 477 QTc: 465 Interpretive Statements Sinus rhythm Ventricular premature complex Left bundle branch block Compared to ECG 05/23/2021 15:38:11 No significant changes Electronically Signed On 06-03-2021 16:25:35 CDT by Bashir Bruno [email or web address] <ELECTRONICALLY SIGNED> By: Bashir Bruno MD, [facility] 06/03/21 1625 17 17 Bashir Bruno MD, FACC /EPI
[2021-06-03 22:32] VITALS: BP 144/80
[2021-06-03 22:40] VITALS: BP 144/54
--- NOTE | 2021-06-04 02:40 | NUR ---
PT ADMITTED TO THE UNIT AT APPROXIMATELY 2240. PT IS A/O X4 WITH SOME FORGETFULNESS. GETS UP WITH ASSIST X1 TO THE BSC. 2 LITERS 02 NC. VSS. SB/SR WITH BBB ON THE MONITOR. VSS AFEBRILE. ADMISSION COMPLETED. PT EDUCATED ON USE OF CALL LIGHT AND BED CONTROLS. CALL LIGHT IS WITHIN REACH. MEDICATION GIVEN PER NOV.
[2021-06-04 04:10] VITALS: BP 150/59
[2021-06-04 07:31] VITALS: BP 141/71
--- NOTE | 2021-06-04 08:39 | NUR ---
ASSESSMENT: CM REVIEWED CHART AND SPOKE WITH PTS DAUGHTER OLI. PT WAS ADMITTED FOR SOB AND NECK PAIN. PTS DAUGHTER REPORTS PT HAS HAD INCREASED CONFUSION THE PAST COUPLE MONTHS. PT CURRENTLY LIVES IN A HOUSE ALONE. PT HAS ABOUT 4-5 STEPS TO ENTER THE HOME AND NO STEPS SHE HAS TO USE ONCE INSIDE. PT DOES HAVE A BASEMENT BUT DOES NOT GO DOWN THERE. PT NORMALLY IS INDEPENDENT WITH AMBULATION BUT DOES HAVE A WALKER AT HOME IF NEEDED. PT WEARS 3L OF OXYGEN NEEDED AND IT IS SUPPLIED THROUGH [employer] BUT DAUGHTER REPORTS SHE HAS BEEN WEARING IT MORE RECENTLY ABOUT 8-10 HRS/DAY. DAUGHTER REPORTS SHE ASSIST HER MOTHER WITH SHOWERING AND PT HAS A SHOWER CHAIR. PT HAS HAD [facility] IN THE PAST BUT HAS NEVER BEEN TO A SNF. PTS PCP IS DR. ALVARO OLIVARES. PT IS CURRENTLY ON IV ANBX. CM WILL CONTINUE TO FOLLOW TO ASSIST NEEDED.
--- NOTE | 2021-06-04 08:52 | NUR ---
ASSESSMENT: CM REVIEWED CHART AND SPOKE WITH PTS DAUGHTER OLI. PT WAS ADMITTED FOR SOB AND NECK PAIN. PTS DAUGHTER REPORTS PT HAS HAD INCREASED CONFUSION THE PAST COUPLE MONTHS. PT CURRENTLY LIVES IN A HOUSE ALONE. PT HAS ABOUT 4-5 STEPS TO ENTER THE HOME AND NO STEPS SHE HAS TO USE ONCE INSIDE. PT DOES HAVE A BASEMENT BUT DOES NOT GO DOWN THERE. PT NORMALLY IS INDEPENDENT WITH AMBULATION BUT DOES HAVE A WALKER AT HOME IF NEEDED. PT WEARS 3L OF OXYGEN NEEDED AND IT IS SUPPLIED THROUGH [employer] BUT DAUGHTER REPORTS SHE HAS BEEN WEARING IT MORE RECENTLY ABOUT 8-10 HRS/DAY. DAUGHTER REPORTS SHE ASSIST HER MOTHER WITH SHOWERING AND PT HAS A SHOWER CHAIR. PT HAS HAD [facility] IN THE PAST BUT HAS NEVER BEEN TO A SNF. PTS PCP IS DR. ALVARO OLIVARES. CARDIOLOGY HAS BEEN CONSULTED DUE TO BRADYCARDIA BUT NO FURTHER WORKUP AT THIS TIME PT HAD RECENT STRESS TEST. CM WILL CONTINUE TO FOLLOW TO ASSIST NEEDED.
[2021-06-04 12:01] VITALS: BP 141/71
[2021-06-04 12:05] VITALS: BP 143/64
[2021-06-04] MEDS ORDERED: METOPROLOL SUCC50 MG PO (12:25)
[2021-06-04] MEDS ORDERED: PROTONIX40 M2 PO (12:25)
[2021-06-04] MEDS ORDERED: HYDRALAZINE 2525 M1 PO (12:25)
--- NOTE | 2021-06-04 13:29 | NUR ---
PT ALERT AND ORIENTED TIMES FOR. VSS. PT C/O HEADACHE PRNPAIN MEDICATIONS GIVEN WITH GOOD RELEIF. PT TOLERATES MEDS AND MEALS. PT UP TO BSC WITH ASSIT OF ONE. PT DAUGHTER AT BEDSIDE TTHIS MORNING. POSSIBLE PLANS TO DISCHARGE HOME TODAY. WILL CONTINUE TRO MONITOR.
== END 2021-06-04 17:25 | disposition home or self-care (01) ==
LOC: ER 20:21 → 4S 06-03 01:22 → EROBS 06-03 01:22 → 4S 06-03 22:25
PROVIDERS: Emergency Medicine; ADMIT Hospitalist; ATTEND Hospitalist
DX: K21.9 Gastro-esophageal reflux disease without esophagitis (principal); Z20.822 Contact with and (suspected) exposure to COVID-19; M54.2 Cervicalgia; I13.10 Hypertensive heart and chronic kidney disease without heart failure, with stage 1 through stage 4 chronic kidney disease, or unspecified chronic kidney disease; I50.32 Chronic diastolic (congestive) heart failure; E11.22 Type 2 diabetes mellitus with diabetic chronic kidney disease; N18.30 Chronic kidney disease, stage 3 unspecified; D64.9 Anemia, unspecified; J44.9 Chronic obstructive pulmonary disease, unspecified; E78.5 Hyperlipidemia, unspecified; D72.829 Elevated white blood cell count, unspecified; J96.11 Chronic respiratory failure with hypoxia; E03.9 Hypothyroidism, unspecified; Z79.4 Long term (current) use of insulin; Z79.82 Long term (current) use of aspirin; Z79.899 Other long term (current) drug therapy
CPT/HCPCS: 10100

== ENCOUNTER 2021-06-25 20:14 | Inpatient (IN) | payer OTHER ==
[~2021-06-25] VITALS: Ht 157.5 cm; Wt 93.9 kg
--- NOTE | ~2021-06-25 | EMS ---
[place] [id number] [place] Patient Care Report Name: PEDRO ANNA Room #: 362-P ADM IN M.R.#: [id number] Admission: 06/26/21 Attend Phys: Ruperto Vinson MD Discharge: Date of : 35 Report #: [id number] THIS REPORT FOR: //name// Report Transmitted: 06/28/2021 14:23 EMS Care Summary [place], [place]/[facility] Incident [id number] @ 06/25/2021 19:34 Incident [address] [place] [address] Patient PEDRO ANNA Female, 86 Years 1935 Patient Address [address] [place] [address] Patient History Chronic Obstructive Pulmonary Disease (COPD),Diabetes,Hypertension (HTN),Stroke/CVA,Breast Cancer,Emphysema,Atrial Fibrillation,Mastectomy, Patient Allergies No known allergies, Patient Medications Famotidine, Doxazosin, Furosemide, Simvastatin, Chief Complaint SOB Disposition Transported No Lights/[place] Dispatch Reason Breathing Problem Transported To [facility] Narrative UPON ARRIVAL TO SCENE, PT FOUND SEATED IN CHAIR ALERT AND ORIENTED. PT STATED SHE STARTED FEELING SOB ABOUT 30 MIN PRIOR TO CALLING, PUT HER NC ON THAT SHE USES NEEDED BUT WAS STILL FEELING SOB. PT SEEN IN ER ABOUT [place] [address] EMS Patient Care Report Name: PEDRO ANNA Room #: 362-P ADM IN .R.#: [id number] Admission: 06/26/21 Attend Phys: Ruperto Vinson MD Discharge: Date of : 35 Report #: [id number] SIMILAR FEELING AND WAS DIAGNOSED WITH TACHYCARDIA. PT VITALS AND ECG ASSESSED AND SHE WAS ASSISTED TO STAIR CHAIR. TAKEN TO STRETCHER AND THEN TO AMBULANCE WITH NO DIFFICULTY OR CHANGE IN COMPLAINTS. IV LOCK PLACED AND TRANSPORT MADE NON EMERGENT WITH VITALS AND CONDITION MONITORED EN ROUTE. UPON ARRIVAL PT TAKEN TO ER TRIAGE AND CARE LEFT WITH STAFF NURSE. Initial Vitals @19:52P: 68,R: 18,BP: 137/78,Pain: 0/10,GCS: 15,CO: 5,SpO2: 98,Revised Trauma: 12, @19:47P: 74,R: 18,BP: 157/86,Pain: 0/10,GCS: 15,Glucose: 250,SpO2: 97,Revised Trauma: 12,TN Suspected: false @19:59P: 62,R: 18,BP: 136/75,Pain: 0/10,GCS: 15,CO: 5,SpO2: 98,Revised Trauma: 12, @19:38P: 82,R: 18,BP: 156/78,Pain: 0/10,GCS: 15,SpO2: 97,Revised Trauma: 12, Assessments @19:39MENTAL:Event Oriented,Time Oriented,Place Oriented,Person Oriented,SKIN:HEENT:Head/Face: No Abnormalities,Neck/Airway: No Abnormalities,LUNG SOUNDS:General: No Abnormalities,ABDOMEN:General: No Abnormalities,PELVIS//GI:EXTREMITIES:Left Arm: No Abnormalities,Right Arm: No Abnormalities,Left Leg: No Abnormalities,Right Leg: No Abnormalities,PULSE:NEURO:No Abnormalities, Impression Acute Respiratory Distress (Dyspnea) Procedures @19:39ALS AssessmentResponse: UnchangedSucceeded@PTAOxygen FlowRate: 3 Device: Nasal Cannula (NC) Response: UnchangedSucceeded@19:413-Lead ECGResponse: UnchangedSucceeded@19:49Saline Lock 5cc (20 ga) Site: Antecubital-RightResponse: UnchangedSucceeded Timeline NURSES EDUCATOR,Oxygen FlowRate: 3 Device: Nasal Cannula (NC) Response: UnchangedSucceeded, 19:34,Call Received 19:34,Dispatch Notified 19:34,Dispatched 19:35,En Route 19:37,On Scene 19:38,At Patient 19:38,BP: 156/78 M,PULSE: 82,RR: 18 R,SPO2: 97 Ox,ETCO2: ,BG: ,PAIN: 0,GCS: 15, 19:39,ALS Assessment,Response: UnchangedSucceeded, 19:41,3-Lead ECG,Response: UnchangedSucceeded, 19:47,BP: 157/86 M,PULSE: 74,RR: 18 R,SPO2: 97 Ox,ETCO2: ,B,PAIN: 0,GCS: 15, 19:49,Saline Lock 5cc 20 ga Site: Antecubital-Right,Response: [facility] [address] [place] [address] EMS Patient Care Report Name: PEDRO ANNA ROJO Room #: 362-P [facility] IN M.R.#: [id number] Admission: 06/26/21 Attend Phys: Ruperto Vinson MD Discharge: Date of : 35 Report #: [id number] UnchangedSucceeded, 19:52,BP: 137/78 M,PULSE: 68,RR: 18 R,SPO2: 98 Ox,ETCO2: ,BG: ,PAIN: 0,GCS: 15, 19:53,Depart Scene 19:59,BP: 136/75 M,PULSE: 62,RR: 18 R,SPO2: 98 Ox,ETCO2: ,BG: ,PAIN: 0,GCS: 15, 20:10,At Destination 20:22,Call Closed Disclaimer v1.1 Copyright 2020 [employer] This EMS Care Summary contains data elements from the applicable legal record (which may be displayed differently). It is designed to provide pertinent information for the following purposes: continuity of care, clinical quality, and state data reporting. The complete legal record is available to ED staff and administrators of the receiving hospital in [employer]'s Patient Tracker. All data is provided "as is."
[~2021-06-25 20:14] MED LIST changes: +HYDRALAZINE 2525 M1 PO; +METOPROLOL SUCC50 MG PO; +PROTONIX40 M2 PO
[2021-06-25 20:47] VITALS: BP 140/74
[2021-06-25 23:00] LABS: ABSOLUTE NEUTROPHILS 6.2 thou/uL (1.4-8.2); BASOPHILS 1.1 % (0.0-2.0); EOSINOPHILS 2.2 % (0.0-3.0); HEMATOCRIT 33.7 % (37.0-47.0); HEMOGLOBIN 10.7 gm/dL (12.0-15.0); LYMPHOCYTES 15.5 % (24.0-44.0); MCH 28.1 pg (26.0-34.0); MCHC 31.8 g/dL (28.0-37.0); MCV 88.4 fL (80.0-100.0); MONOCYTES 8.8 % (1.0-8.0); PLATELET COUNT 159 thou/uL (150-400); POLYS 72.4 % (36.0-66.0); RBC 3.82 mil/uL (4.20-5.00); RDW 15.4 % (10.5-14.5); WBC 8.6 thou/uL (4.0-11.0)
[2021-06-25 23:10] LABS: CALCIUM 9.5 mg/dL (8.5-10.1); CREATININE 2.3 mg/dL (0.6-1.0); POTASSIUM 3.9 mmol/L (3.5-5.1)
[2021-06-25 23:19] LABS: ALBUMIN 3.4 g/dL (3.4-5.0); TOTAL BILIRUBIN 0.2 mg/dL (0.2-1.0); TOTAL PROTEIN 6.9 g/dL (6.4-8.2)
[2021-06-26] VITALS (7 sets, daily range): BP systolic 119–159; BP diastolic 55–83
[2021-06-26 05:13] LABS: CHOLESTEROL 145 mg/dL (<200); HDL CHOLESTEROL 48 mg/dL (>40); LDL CHOLESTEROL 50 mg/dL (<100); TRIGLYCERIDE 236 mg/dL (<150); VLDL 47 mg/dL (<40)
[2021-06-26 05:36] LABS: SERUM ASSESSMENT Clear
--- NOTE | 2021-06-26 06:49 | EKG ---
[place] [address] [facility] 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: : 1935 Requested By: Colton Eubanks Order Number: [id number] MD: Bashir Bruno Measurements Intervals [place] Rate: 92 P: 41 [place]: 169 QRS: -32 QRSD: 147 T: 141 QT: 427 QTc: 529 Interpretive Statements Sinus rhythm Probable left atrial enlargement Left bundle branch block Compared to ECG 06/02/2021 23:18:54 Ventricular premature complex(es) no longer present Electronically Signed On 06-26-2021 6:49:11 CDT by Bashir Bruno [email or web address] <ELECTRONICALLY SIGNED> By: Bashir Bruno MD, [facility] 06/26/21 0649 27 27 Bashir Bruno MD, [facility] /EPI
--- NOTE | 2021-06-26 13:52 | 2DMMODE ---
[address] [address] 2 D/M-MODE ECHOCARDIOGRAM Name: PEDRO ANNA Room #: 362-P ADM IN M.R.#: [id number] Admission: 06/26/21 Attend Phys: Ruperto Vinson MD Discharge: Date of : 35 Report #: [id number] THIS REPORT FOR: cc: Tracie Chopra MD, Nora P. MD Santiago, Patrick MD [facility] ~ APPROVED REPORT Study performed: 06/26/2021 12:31:03 EXAM: Comprehensive 2D, Doppler, and color-flow Echocardiogram Patient Location: Bedside Room #: 362 Status: routine BSA: 1.94 HR: 73 bpm BP: 137/75 mmHg Rhythm: NSR Other Information Study Quality: Good Indications COPD Diabetes CAD Chest Pain Hypertension/HDD 2D Dimensions IVC: 18.00 mm Tricuspid Valve TR Peak Fausto.: 2.53 m/s TR Peak Gr.: 25.68 mmHg PA Pressure: 36.00 mmHg Left Ventricle The left ventricle is normal size. There is normal LV segmental wall motion. Mild concentric left ventricular hypertrophy. The left ventricular systolic function is normal. The left ventricular ejection fraction is within the normal range. LVEF is 55-60%. Right Ventricle [address] [address] 2 D/M-MODE ECHOCARDIOGRAM Name: PEDRO ANNA Room #: 362-P ADM IN M.R.#: [id number] Admission: 06/26/21 Attend Phys: Ruperto Vinson, Discharge: Date of : 35 Report #: [id number] The right ventricle is normal size. The right ventricular systolic function is normal. Atria Left atrium is dilated. Right atrium is dilated. Aortic Valve The aortic valve is normal in structure. No aortic regurgitation is present. There is no aortic valvular stenosis. Mitral Valve The mitral valve is normal in structure. There is mitral annular calcification. Mild mitral regurgitation. No evidence of mitral valve stenosis. Tricuspid Valve The tricuspid valve is normal in structure. There is mild tricuspid regurgitation. Estimated PAP 36 mmHg. There is mild pulmonary hypertension. Pulmonic Valve The pulmonary valve is normal in structure. Great Vessels The aortic root is normal in size. IVC is normal in size and collapses <50% with inspiration. Pericardium There is no pericardial effusion. <Conclusion> Normal left ventricle size with mild concentric hypertrophy Ejection fraction 60%, mild distal septal hypokinesis Normal right ventricular size/function Mild biatrial enlargement Normal aortic valve structure and function Mild mitral annular calcification Mild mitral valve insufficiency Mild tricuspid valve insufficiency Pulmonary systolic pressure estimated 39 mmHg No pericardial effusion Normal aortic root size <ELECTRONICALLY SIGNED> By: Bashir Bruno MD, [facility] 06/26/21 1352 1352 1352 Bashir Bruno MD, FACC /INF
--- NOTE | 2021-06-26 19:32 | NUR ---
PT ADIMITTED FROM ER FOR NSTEMI ABOUT 0800AM, PT IS A&OX4, PT IS ON O2 3L/MIN/NC, PT'S VS ARE STABLE, PT DENIES PAIN AND SOB AT DAY SHIFT , BUT PT STILL HAS WEAKNESS , SHE NEEDS HELP TO BATH ROOM. CARDIOLOGY HAS SEEING PT.
[2021-06-27 01:06] LABS: GLYCOHEMOGLOBIN (HGB A1C) 8.8 % (4.8-5.6)
[2021-06-27 03:40] VITALS: BP 122/59
--- NOTE | 2021-06-27 04:31 | NUR ---
Progressing towards outcome goals. Vital signs and rhythm stable. Gait slow but steady. Calls out appropriately for assistance with needs out of bed. Generalized headache treated with Tylenol with complete relief.
[2021-06-27 05:44] LABS: HEMATOCRIT 31.8 % (37.0-47.0); HEMOGLOBIN 10.3 gm/dL (12.0-15.0); MCH 28.8 pg (26.0-34.0); MCHC 32.3 g/dL (28.0-37.0); RBC 3.57 mil/uL (4.20-5.00); RDW 15.2 % (10.5-14.5); WBC 6.2 thou/uL (4.0-11.0)
[2021-06-27 06:23] LABS: CALCIUM 9.5 mg/dL (8.5-10.1); CREATININE 1.9 mg/dL (0.6-1.0); POTASSIUM 4.2 mmol/L (3.5-5.1)
[2021-06-27 07:32] VITALS: BP 122/59
[2021-06-27 11:48] VITALS: BP 141/76
--- NOTE | 2021-06-27 15:32 | NUR ---
INITIAL ASSESSMENT: SW reviewed chart and spoke with nursing and attending physician. Pt was admitted from home due to nstemi. Pt is progressing towards goals for discharge. Discharge home is anticipated for tomorrow. SW met with pt at bedside. Introduced role of SW. Pt is alert/orientated x 4. Pt reports she lives at home alone. Prior to admission, pt was independent with ADLs. Pt does have a walker and home O2 in place through [employer]. Pt has used [facility] in the past. Pt's PCP is Dr. Tracie Chopra. Plan is for pt to discharge home when medically stable. SW is following to assist as needed with discharge planning.
[2021-06-27 16:08] VITALS: BP 140/72
--- NOTE | 2021-06-27 17:47 | NUR ---
RN ASSUMED PT'S CARE AT 0700AM, PT IS A&OX4, PT IS OFF O2 TOTAY, PT DENIES SOB , DIZZINESS AND PAIN BY THIS TIME, PT'S VS ARE STABLE AT DAY SHIFT, PT GETS UP TO CHAIR AND BATH ROOM WIHTOUT ASSIST.
[2021-06-27 19:06] VITALS: BP 151/76
[2021-06-28 04:04] VITALS: BP 125/62
[2021-06-28 08:12] VITALS: BP 147/81
--- NOTE | 2021-06-28 08:14 | NUR ---
PT MAKING PROGRESS TOWARDS GOALS. DENIED ANY CHEST PAIN OVERNIGHT. DID C/O HEADACHE INITIALLY TREATED WITH TYLENOL BY SANAZ HERRERA. REPORTED WORSENED HEADACHE UPON MIDNIGHT ASSESSMENT. ORDERS RECEIVED FROM CARDIAC SPECIALIST. MED GIVEN AND PT STATED THAT THE HEADACHE WAS "GONE" THIS AM.
[2021-06-28 11:07] VITALS: BP 143/66
--- NOTE | 2021-06-28 13:23 | NUR ---
DISCHARGE NOTE: SW reviewed chart and spoke with nursing and attending physician. Pt is medically stable for discharge home today. SW met with pt at bedside to discuss discharge plan. Pt is aware and in agreement with discharge plan. Pt has home O2 in place through [employer]. Pt declines needing HH services. Pt's family to provide transportation home when pt is ready for discharge. No SW needs identified at this time, but is available to assist should needs arise.
[2021-06-28 14:19] VITALS: BP 143/66
--- NOTE | 2021-06-28 19:09 | NUR ---
DISCHARGE: PT DISCHARGE CONSENTS SIGNED AND IN CHART. WENT OVER D/C MEDICATIONS, HOW TO TAKE HOME MEDICATIONS. TAUGHT PT HOW TO PROPERLY TAKE BP AT HOME. PT INFORMED OF UPCOMING APPOINTMENTS. DISCHARGED WITH DAUGHTER, DAUGHTER TAUGHT PT TEACHINGS WELL. BELONGINGS WITH PT AT DISCHARGE. PT AND DAUGHTER VERBILIZED UNDERSTANDING.
[2021-07-09] MEDS ORDERED: HUMALOG100 UNIT/1 SUBQ (11:12)
[2021-07-09] MEDS ORDERED: LEVEMIR100 UNIT/2 SUBQ (11:12)
== END 2021-06-28 16:23 | disposition home or self-care (01) | DRG 280 ==
LOC: ER 20:14 → EROBS 06-26 01:39 → 3W 06-26 01:39
PROVIDERS: Emergency Medicine; Nurse Practitioner Family; ADMIT Internal Medicine; ATTEND Internal Medicine
DX: I21.4 Non-ST elevation (NSTEMI) myocardial infarction (principal); N17.0 Acute kidney failure with tubular necrosis; J96.11 Chronic respiratory failure with hypoxia; J44.9 Chronic obstructive pulmonary disease, unspecified; E11.40 Type 2 diabetes mellitus with diabetic neuropathy, unspecified; E11.22 Type 2 diabetes mellitus with diabetic chronic kidney disease; E03.9 Hypothyroidism, unspecified; E78.5 Hyperlipidemia, unspecified; I27.20 Pulmonary hypertension, unspecified; E11.65 Type 2 diabetes mellitus with hyperglycemia; M54.2 Cervicalgia; D63.8 Anemia in other chronic diseases classified elsewhere; N18.30 Chronic kidney disease, stage 3 unspecified; I12.9 Hypertensive chronic kidney disease with stage 1 through stage 4 chronic kidney disease, or unspecified chronic kidney disease; I25.10 Atherosclerotic heart disease of native coronary artery without angina pectoris; Z79.4 Long term (current) use of insulin; Z90.13 Acquired absence of bilateral breasts and nipples; Z88.6 Allergy status to analgesic agent; Z88.8 Allergy status to other drugs, medicaments and biological substances; Z87.891 Personal history of nicotine dependence; Z86.73 Personal history of transient ischemic attack (TIA), and cerebral infarction without residual deficits; Z79.82 Long term (current) use of aspirin; Z79.899 Other long term (current) drug therapy; Z23 Encounter for immunization; Z20.822 Contact with and (suspected) exposure to COVID-19
CPT/HCPCS: 10879

== ENCOUNTER 2021-07-03 12:41 | Inpatient (IN) | payer OTHER ==
[~2021-07-03] VITALS: Ht 160 cm; Wt 93.9 kg
[2021-07-03 13:41] LABS: URINE BILIRUBIN NEGATIVE (Negative); URINE BLOOD NEGATIVE (Negative); URINE CLARITY CLEAR; URINE COLOR YELLOW; URINE GLUCOSE-RANDOM* TRACE (Negative); URINE KETONES NEGATIVE (Negative); URINE LEUKOCYTES-REFLEX NEGATIVE (Negative); URINE NITRITE-REFLEX NEGATIVE (Negative); URINE PROTEIN (DIPSTICK) NEGATIVE (Negative); URINE UROBILINOGEN 0.2 E.U./dl (0.2-1.0)
[2021-07-03 13:46] VITALS: BP 172/63
--- NOTE | 2021-07-03 15:15 | EKG ---
[facility] [place] [address] ELECTROCARDIOGRAM REPORT Name: WILFRIDOPEDRO ROJO Room #: [facility]#: [id number] Admission: 07/03/21 Attend Phys: Discharge: Date of : 35 Report #: [id number] [facility] ED Test Date: 2021-07-03 Test Time: 13:53:10 Pat Name: PEDRO ANNA Department: Room: Gender: F Rfid Technician: MAY : 1935 Requested By: Skinny Campbell Order Number: [id number] MD: Bashir Bruno Measurements Intervals [place] Rate: 47 P: 33 AK: 183 QRS: -36 QRSD: 160 T: 141 QT: 506 QTc: 448 Interpretive Statements Sinus bradycardia Multiple ventricular premature complexes Left bundle branch block Compared to ECG 06/25/2021 22:28:54 Ventricular premature complex(es) now present Sinus rhythm no longer present Electronically Signed On 07-03-2021 15:15:08 CDT by Bashir Bruno [email or web address] <ELECTRONICALLY SIGNED> By: Bashir Bruno MD, [facility] 07/03/21 1515 1353 1353 Bashir Bruno MD, FACC /EPI
[2021-07-03 16:26] LABS: ABSOLUTE NEUTROPHILS 5.5 thou/uL (1.4-8.2); BASOPHILS 1.2 % (0.0-2.0); EOSINOPHILS 1.8 % (0.0-3.0); HEMATOCRIT 32.7 % (37.0-47.0); HEMOGLOBIN 10.4 gm/dL (12.0-15.0); LYMPHOCYTES 16.6 % (24.0-44.0); MCH 27.9 pg (26.0-34.0); MCHC 31.8 g/dL (28.0-37.0); MCV 87.7 fL (80.0-100.0); MONOCYTES 9.6 % (1.0-8.0); PLATELET COUNT 182 thou/uL (150-400); POLYS 70.8 % (36.0-66.0); RBC 3.73 mil/uL (4.20-5.00); RDW 14.8 % (10.5-14.5); WBC 7.8 thou/uL (4.0-11.0)
[2021-07-03 16:34] LABS: CALCIUM 9.4 mg/dL (8.5-10.1); CREATININE 1.8 mg/dL (0.6-1.0)
[2021-07-03 16:39] LABS: POTASSIUM 4.4 mmol/L (3.5-5.1)
[2021-07-03 17:13] VITALS: BP 161/66
[2021-07-03 18:45] VITALS: BP 154/70
[2021-07-03 20:45] VITALS: BP 147/57
[2021-07-04] VITALS (7 sets, daily range): BP systolic 128–176; BP diastolic 62–85
--- NOTE | 2021-07-04 00:06 | NUR ---
assumed pt care at 1900, alert and oriented, c/o back pain, weakness noted while getting up to the commode, sb/bbb with pvcs, denies cp, sob with exertion, admission assessment completed and as charted, meds given as per mar, no needs at this timne will continue to monitor and follow poc
[2021-07-04 03:42] LABS: ABSOLUTE NEUTROPHILS 6.3 thou/uL (1.4-8.2); BASOPHILS 0.3 % (0.0-2.0); EOSINOPHILS 0.2 % (0.0-3.0); HEMATOCRIT 34.3 % (37.0-47.0); HEMOGLOBIN 10.7 gm/dL (12.0-15.0); LYMPHOCYTES 10.5 % (24.0-44.0); MCH 27.7 pg (26.0-34.0); MCHC 31.2 g/dL (28.0-37.0); MCV 88.9 fL (80.0-100.0); MONOCYTES 1.7 % (1.0-8.0); PLATELET COUNT 168 thou/uL (150-400); POLYS 87.3 % (36.0-66.0); RBC 3.86 mil/uL (4.20-5.00); RDW 14.7 % (10.5-14.5); WBC 7.2 thou/uL (4.0-11.0)
[2021-07-04 05:53] LABS: CALCIUM 9.6 mg/dL (8.5-10.1); CREATININE 1.8 mg/dL (0.6-1.0); MAGNESIUM 1.9 mg/dL (1.8-2.4); POTASSIUM 4.6 mmol/L (3.5-5.1)
--- NOTE | 2021-07-04 15:36 | NUR ---
TOOK OVER CARE OF THIS PATIENT AT 0700. PATIENT RESTING COMFORTABLY IN BED; DENIES NEEDS AT THIS TIME. PATIENT ON ROOM AIR; DENIES SOA. FALL PRECAUTIONS IN PLACE AND CALL LIGHT WITHIN REACH. FAMILY MEMBER AT BEDSIDE.
--- NOTE | 2021-07-04 17:19 | NUR ---
Chart reviewed and case discussed with the care team. Pt known to cm from mutiple admissions in the recent past. The pt dc'd to home on 06/28/21 with no needs. She lives alone in a single story home with 4 steps to enter. She has supportive family and indicates her dtr takes her to appts, helps with laundry, housekeeping and shopping. She also helps with her shower. The pt is normally indep with transfers, gait within the home and has home o2 inplace to use PRN. She does have a rwalker also. Her pcp is Tracie Yao. She has had [facility] in the past. Therapy evals are in progress. Pt was unable to ambulate upon admission d/t back pain. Neuro surgery consulted. No surgery indicated at this time. Message left for [facility] to see if they could accept again and message left for pt's dtr regarding hh referral options and to see what concerns she may have in regards to pt returning home with hh at [place].
--- NOTE | 2021-07-05 03:42 | NUR ---
ASSUMED PT CARE AT 1900. ALERT AND ORIENTED, SR ON TELE, C/O STABBING BACK PAIN WITH ACTIVITY, AFFECTING HER BREATHING, PT GIVEN TRAMADOL WITH PARTIAL RELIEF, PAIN COMPLETE WITH REST, ASSESSMENTS CHARTED, NO NEEDS AT THIS TIME, PROGRESSING SLOWLY TOWARDS DISCHARGE
[2021-07-05 04:45] VITALS: BP 142/62
[2021-07-05 07:30] VITALS: BP 142/67
[2021-07-05 11:25] VITALS: BP 131/59
[2021-07-05] MEDS ORDERED: TRAMADOL 50 MG50 MG PO (11:57)
[2021-07-05] MEDS ORDERED: METOPROLOL SUCC50 MG PO (11:57)
[2021-07-05] MEDS ORDERED: HUMALOG100 UNIT/1 SUBQ (11:59)
[2021-07-05] MEDS ORDERED: LANTUS SUBQ (11:59)
[2021-07-05] MEDS ORDERED: LIDODERM1 EACH TOP (12:00)
[2021-07-05 12:42] VITALS: BP 147/62
[2021-07-09] MEDS ORDERED: HUMALOG100 UNIT/1 SUBQ (11:12)
[2021-07-09] MEDS ORDERED: LEVEMIR100 UNIT/2 SUBQ (11:12)
== END 2021-07-05 15:29 | disposition home or self-care (01) | DRG 552 ==
LOC: ER 12:41 → EROBS 16:51 → 2N 16:51
PROVIDERS: Emergency Medicine; Nurse Practitioner; ADMIT Hospitalist; ATTEND Hospitalist
DX: M48.061 Spinal stenosis, lumbar region without neurogenic claudication (principal); J96.11 Chronic respiratory failure with hypoxia; R00.1 Bradycardia, unspecified; I16.0 Hypertensive urgency; Z20.822 Contact with and (suspected) exposure to COVID-19; J44.9 Chronic obstructive pulmonary disease, unspecified; N18.30 Chronic kidney disease, stage 3 unspecified; E11.22 Type 2 diabetes mellitus with diabetic chronic kidney disease; E03.9 Hypothyroidism, unspecified; E78.5 Hyperlipidemia, unspecified; M51.36 Other intervertebral disc degeneration, lumbar region; I27.20 Pulmonary hypertension, unspecified; E11.42 Type 2 diabetes mellitus with diabetic polyneuropathy; D63.8 Anemia in other chronic diseases classified elsewhere; I12.9 Hypertensive chronic kidney disease with stage 1 through stage 4 chronic kidney disease, or unspecified chronic kidney disease; R53.81 Other malaise; K21.9 Gastro-esophageal reflux disease without esophagitis; I25.10 Atherosclerotic heart disease of native coronary artery without angina pectoris; Z60.2 Problems related to living alone; Z82.3 Family history of stroke; Z99.81 Dependence on supplemental oxygen; Z90.13 Acquired absence of bilateral breasts and nipples; I25.2 Old myocardial infarction; Z88.6 Allergy status to analgesic agent; Z88.8 Allergy status to other drugs, medicaments and biological substances; Z87.891 Personal history of nicotine dependence; Z85.3 Personal history of malignant neoplasm of breast; Z86.73 Personal history of transient ischemic attack (TIA), and cerebral infarction without residual deficits; T50.905A Adverse effect of unspecified drugs, medicaments and biological substances, initial encounter
CPT/HCPCS: 10081; 10797

== ENCOUNTER → 2021-07-17 | Outpatient (CLI) | payer OTHER ==
[~2021-07-17] MED LIST changes: +HUMALOG100 UNIT/1 SUBQ; +LEVEMIR100 UNIT/2 SUBQ; +LIDODERM1 EACH TOP
== END ==
LOC: SJCVC 14:26
PROVIDERS: ATTEND Internal Medicine
DX: I44.7 Left bundle-branch block, unspecified (principal); R94.31 Abnormal electrocardiogram [ECG] [EKG]; I50.32 Chronic diastolic (congestive) heart failure; E78.5 Hyperlipidemia, unspecified; G47.33 Obstructive sleep apnea (adult) (pediatric); D50.9 Iron deficiency anemia, unspecified; G47.30 Sleep apnea, unspecified; E78.00 Pure hypercholesterolemia, unspecified; I12.9 Hypertensive chronic kidney disease with stage 1 through stage 4 chronic kidney disease, or unspecified chronic kidney disease; N18.4 Chronic kidney disease, stage 4 (severe); E11.22 Type 2 diabetes mellitus with diabetic chronic kidney disease; Z87.891 Personal history of nicotine dependence; Z79.82 Long term (current) use of aspirin; Z79.84 Long term (current) use of oral hypoglycemic drugs; Z79.899 Other long term (current) drug therapy; Z88.1 Allergy status to other antibiotic agents; Z88.5 Allergy status to narcotic agent

== ENCOUNTER 2021-08-15 00:18 | Observation (INO) | payer OTHER ==
[~2021-08-15] VITALS: Ht 152.4 cm; Wt 93.0 kg
[2021-08-15] VITALS (7 sets, daily range): BP systolic 104–160; BP diastolic 60–74
[2021-08-15] MEDS ORDERED: LEVEMIR100 UNIT/1 SUBQ (00:30)
[2021-08-15 01:00] LABS: HEMOGLOBIN 10.6 gm/dL (12.0-15.0); WBC 9.1 thou/uL (4.0-11.0)
[2021-08-15 01:02] LABS: ABSOLUTE NEUTROPHILS 6.6 thou/uL (1.4-8.2); BASOPHILS 0.8 % (0.0-2.0); EOSINOPHILS 1.2 % (0.0-3.0); HEMATOCRIT 33.5 % (37.0-47.0); LYMPHOCYTES 16.4 % (24.0-44.0); MCHC 31.7 g/dL (28.0-37.0); MCV 88.1 fL (80.0-100.0); MONOCYTES 8.8 % (1.0-8.0); PLATELET COUNT 174 thou/uL (150-400); POLYS 72.8 % (36.0-66.0); RDW 14.1 % (10.5-14.5)
[2021-08-15 01:12] LABS: CALCIUM 9.5 mg/dL (8.5-10.1); CREATININE 2.3 mg/dL (0.6-1.0); POTASSIUM 3.3 mmol/L (3.5-5.1)
[2021-08-15 01:23] LABS: ALBUMIN 3.2 g/dL (3.4-5.0); TOTAL BILIRUBIN 0.3 mg/dL (0.2-1.0); TOTAL PROTEIN 7.2 g/dL (6.4-8.2)
[2021-08-15] MEDS ORDERED: DEMADEX20 MG PO (03:16)
[2021-08-15] MEDS ORDERED: HYDRALAZINE 2525 M1 PO (03:18)
--- NOTE | 2021-08-15 06:50 | NUR ---
PT IS AN ADMIT THIS AM REPORTS JUST WASNT FEELING WELL IS WHAT SHE CAME TO THE HOSPITAL. DENIES CHEST PAIN OR EVER HAVING PAIN. LUNGS ARE CLEAR. ON 2 LITERS NASAL CANULA. VITALS STABLE. ABDOMEN IS OBESE ROUND AND SOFT. BOWEL SOUNDS HYOPOACTIVE. ASSESSMENT DONE OF SKIN NO ISSUES NOTED . DRY SKIN. 2 PLUS PEDAL NOTED IN SKIN. FLUIDS INFUSING SEE MAR FOR TIME OF ADMINISTRATION. AM MEDS GIVEN AND BEDSIDE ULTRASOUND DONE THIS AM FOR CARE. CALL LIGHT WITHIN REACH IF NEEDS ASSISTANCE PER NURSING
--- NOTE | 2021-08-15 08:06 | EKG ---
[place] [address] [employer] [facility] [place] [address] ELECTROCARDIOGRAM REPORT Name: PEDRO ANNA Room #: 205- ADM IN M.R.#: [id number] Admission: 08/15/21 Attend Phys: El Inman MD Discharge: Date of : 35 Report #: [id number] [facility] ED Test Date: 2021-08-15 Test Time: 01:27:28 Pat Name: PEDRO ANNA Department: Room: 205 Gender: F Wafer Fab Technician: soren : 1935 Requested By: Earl Cifuentes Order Number: [id number] MD: Bashir Bruno Measurements Intervals [place] Rate: 51 P: [place]: QRS: -29 QRSD: 153 T: 153 QT: 481 QTc: 444 Interpretive Statements Suspect Junctional rhythm Left bundle branch block Compared to ECG 07/03/2021 13:53:10 Junctional rhythm now present Sinus bradycardia no longer present Ventricular premature complex(es) no longer present Electronically Signed On 08-15-2021 8:05:55 [employer] by Bashir Bruno [email or web address] <ELECTRONICALLY SIGNED> By: Bashir Bruno MD, [facility] 08/15/21 0805 0127 0127 Bashir Bruno MD, [facility] /EPI
--- NOTE | 2021-08-15 08:34 | EKG ---
[place] [address] [employer] [facility] [place] [address] ELECTROCARDIOGRAM REPORT Name: WILFRIDOPEDROLISE ROJO Room #: 205-[facility] IN ..#: [id number] Admission: 08/15/21 Attend Phys: El Inman MD Discharge: Date of : 35 Report #: [id number] [facility] ED Test Date: 2021-08-15 Test Time: 00:22:36 Pat Name: PEDRO ANNA Department: Room: [facility] Gender: F Foreign Exchange Clerk: soren : 1935 Requested By: Earl Cifuentes Order Number: [id number] MD: Bashir Bruno Measurements Intervals [place] Rate: 140 P: 0 [place]: QRS: -38 QRSD: 145 T: 144 QT: 366 QTc: 559 Interpretive Statements AFL 2:1 Block Left bundle branch block Compared to ECG 07/03/2021 13:53:10 Sinus bradycardia no longer present Ventricular premature complex(es) no longer present Electronically Signed On 08-15-2021 8:04:31 ARTISTS' BOOKING REPRESENTATIVE by Bashir Bruno Electronically Signed On 08-15-2021 8:34:02 ARTISTS' BOOKING REPRESENTATIVE by Bashir Bruno Electronically Signed On 08-15-2021 8:34:21 ARTISTS' BOOKING REPRESENTATIVE by Bashir Bruno [email or web address] <ELECTRONICALLY SIGNED> By: Bashir Bruno MD, [facility] 08/15/21 0834 Bashir Bruno MD, [facility] /EPI
[2021-08-15] MEDS ORDERED: PACERONE 200 M200 M1 PO (08:48)
[2021-08-15] MEDS ORDERED: ELIQUIS2.5 MG PO (08:48)
--- NOTE | 2021-08-15 17:33 | NUR ---
ASSESSMENT CHARTED -MEDS PER NOV - CHARY DIET AND FLUIDS, ACCUCHECKS CHARTED , COVERERD PER SSI PRN. PT GIVEN TRAMADOL FOR CO'S OF PAIN IN LEFT ANKLE - PT STATES SHE DID NOT "INJURE" ANKLE THAT SHE IS AWARE OF AND IT JUST STARTED HURTING - TRAMADOL WITH MOD RELIEF. PT SEEN BY PHYS AND OCC THERAPY THIS SHIFT. UP TO THE BSC TO VOID.. GIVEN LASIX X 1 DOSE ORDERED. NO CO'S AT THE PRESENT TIME.
--- NOTE | 2021-08-15 17:57 | NUR ---
met with patient who admits with chest pain. patient resides at home alone in independent home. all needs on one level with a few steps to enter. Dtr takes patient to phys apts and does her laundry. Patient with Hx of HH care with [facility] and agreeable with [facility] at dc if ordered. 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 She reports her left foot is so painful and it started suddenly. Patient reports her dtr now doing her medications. She reports when sitting does not hurt but when ambulating painful. PCP Dr Chopra. [facility] following for dc planning.
[2021-08-16 03:21] VITALS: BP 139/61
--- NOTE | 2021-08-16 04:30 | NUR ---
ASSUMED PT CARE AT 1900, ALERT AND ORIENTEDX4, FOEGETFUL AT TIMES, C/O PAIN TO THE LEFT FOOT, MEDICATED WITH TRAMADOL PRN WITH RELIEF, ASSESSMENTS CHARTED, VSS, MEDS GIVEN PER EMAR, DENIES CP, SB ON TELE LOW 44, AMIODARONE HELD THIS SHIFT, PLAN TO CONTINUE TO MONITOR HEART RATE AND RHYTHM, NO DISTRESS NOTED THIS SHIFT, PROGRESSING TOWARDS GOALS
[2021-08-16 04:54] LABS: CALCIUM 9.6 mg/dL (8.5-10.1); POTASSIUM 3.3 mmol/L (3.5-5.1)
[2021-08-16 07:25] VITALS: BP 157/72
[2021-08-16 12:34] VITALS: BP 157/72
--- NOTE | 2021-08-16 14:32 | NUR ---
Patient dc home with care/ Faxed orders to [facility] and rec that they rec orders.
--- NOTE | 2021-08-16 21:51 | NUR ---
PT UP IN BED, PLEASANT, NO CONCERNS, WANTS TO GO HOME, DOES C/O PAIN TO LLE, X RAY OBTAINED, RESULTS NEG, DAUGHTER AT SIDE, DISCHARGE INSTRUCTIONS WERE GIVEN, BOTH VERBALLY UNDERSTOOD, THEY DID QUESTION AMIODARONE WITH MONITOR HR PRIOR TO TAKING, DR. ALDANA INFORMED, HE STATED TO HOLE AMIODARONE UNTIL PT FOLLOW UP WITH CARDIO. BOTH PT AND FAMILY UNDERTOOD, DAUGHTER DID NOT BRING 02, CM PROVIDED O2 FOR TRANSPORT.
== END 2021-08-16 14:40 | disposition home or self-care (01) ==
LOC: ER 00:18 → EROBS 03:38 → 2N 03:38
PROVIDERS: Emergency Medicine; Nurse Practitioner Family; ADMIT Hospitalist; ATTEND Hospitalist
DX: I48.20 Chronic atrial fibrillation, unspecified (principal); I48.92 Unspecified atrial flutter; I25.10 Atherosclerotic heart disease of native coronary artery without angina pectoris; I11.0 Hypertensive heart disease with heart failure; N18.30 Chronic kidney disease, stage 3 unspecified; E78.5 Hyperlipidemia, unspecified; E11.40 Type 2 diabetes mellitus with diabetic neuropathy, unspecified; I63.9 Cerebral infarction, unspecified; I27.20 Pulmonary hypertension, unspecified; D64.9 Anemia, unspecified; J44.9 Chronic obstructive pulmonary disease, unspecified; I25.2 Old myocardial infarction; R60.9 Edema, unspecified; D63.8 Anemia in other chronic diseases classified elsewhere; N17.9 Acute kidney failure, unspecified; I50.30 Unspecified diastolic (congestive) heart failure; E03.9 Hypothyroidism, unspecified; Z79.4 Long term (current) use of insulin; Z79.82 Long term (current) use of aspirin; Z79.899 Other long term (current) drug therapy
CPT/HCPCS: 10081

== ENCOUNTER → 2021-08-23 | Outpatient (CLI) | payer OTHER ==
[~2021-08-23] MED LIST changes: +ELIQUIS2.5 MG PO; +PACERONE 200 M200 M1 PO
== END ==
LOC: SJCVC 13:28
PROVIDERS: ATTEND Internal Medicine
DX: R00.1 Bradycardia, unspecified (principal); I44.7 Left bundle-branch block, unspecified; I48.92 Unspecified atrial flutter; I50.32 Chronic diastolic (congestive) heart failure; E11.22 Type 2 diabetes mellitus with diabetic chronic kidney disease; N18.32 Chronic kidney disease, stage 3b; E78.5 Hyperlipidemia, unspecified; J96.11 Chronic respiratory failure with hypoxia; R94.31 Abnormal electrocardiogram [ECG] [EKG]; I25.2 Old myocardial infarction; J44.9 Chronic obstructive pulmonary disease, unspecified; E78.00 Pure hypercholesterolemia, unspecified; I12.9 Hypertensive chronic kidney disease with stage 1 through stage 4 chronic kidney disease, or unspecified chronic kidney disease; F17.210 Nicotine dependence, cigarettes, uncomplicated; Z79.4 Long term (current) use of insulin; Z79.899 Other long term (current) drug therapy; Z88.8 Allergy status to other drugs, medicaments and biological substances; Z82.49 Family history of ischemic heart disease and other diseases of the circulatory system

== ENCOUNTER 2021-09-23 13:31 | Emergency (ER) | payer OTHER ==
[~2021-09-23] VITALS: Ht 160 cm; Wt 97.5 kg
[2021-09-23 15:25] LABS: URINE BILIRUBIN NEGATIVE (Negative); URINE BLOOD NEGATIVE (Negative); URINE CLARITY CLEAR; URINE COLOR YELLOW; URINE GLUCOSE-RANDOM* NEGATIVE (Negative); URINE KETONES NEGATIVE (Negative); URINE LEUKOCYTES-REFLEX NEGATIVE (Negative); URINE NITRITE-REFLEX NEGATIVE (Negative); URINE PROTEIN (DIPSTICK) NEGATIVE (Negative); URINE UROBILINOGEN 0.2 E.U./dl (0.2-1.0)
[2021-09-23 15:59] LABS: ABSOLUTE NEUTROPHILS 6.5 thou/uL (1.4-8.2); BASOPHILS 1.4 % (0.0-2.0); EOSINOPHILS 1.6 % (0.0-3.0); HEMATOCRIT 34.8 % (37.0-47.0); HEMOGLOBIN 11.1 gm/dL (12.0-15.0); LYMPHOCYTES 19.6 % (24.0-44.0); MCH 27.6 pg (26.0-34.0); MCHC 31.7 g/dL (28.0-37.0); MCV 86.9 fL (80.0-100.0); MONOCYTES 8.6 % (1.0-8.0); PLATELET COUNT 177 thou/uL (150-400); POLYS 68.8 % (36.0-66.0); RBC 4.01 mil/uL (4.20-5.00); WBC 9.4 thou/uL (4.0-11.0)
[2021-09-23 16:06] LABS: CALCIUM 10.3 mg/dL (8.5-10.1); CREATININE 2.4 mg/dL (0.6-1.0); POTASSIUM 3.5 mmol/L (3.5-5.1)
[2021-09-23 18:35] VITALS: BP 144/68
== END 2021-09-23 18:36 | disposition home or self-care (01) ==
LOC: ER 13:31
PROVIDERS: Emergency Medicine
DX: H33.8 Other retinal detachments (principal); M79.605 Pain in left leg; I12.9 Hypertensive chronic kidney disease with stage 1 through stage 4 chronic kidney disease, or unspecified chronic kidney disease; E11.22 Type 2 diabetes mellitus with diabetic chronic kidney disease; N18.30 Chronic kidney disease, stage 3 unspecified; Z87.891 Personal history of nicotine dependence; Z88.8 Allergy status to other drugs, medicaments and biological substances; Z88.5 Allergy status to narcotic agent; Z79.899 Other long term (current) drug therapy; Z79.82 Long term (current) use of aspirin; Z86.73 Personal history of transient ischemic attack (TIA), and cerebral infarction without residual deficits

== ENCOUNTER → 2021-09-26 | Outpatient (CLI) | payer OTHER | LOC: SJCVC 13:26 | PROVIDERS: ATTEND Internal Medicine | DX: R94.31 Abnormal electrocardiogram [ECG] [EKG] (principal); I44.7 Left bundle-branch block, unspecified; I48.92 Unspecified atrial flutter; I50.32 Chronic diastolic (congestive) heart failure; I13.0 Hypertensive heart and chronic kidney disease with heart failure and stage 1 through stage 4 chronic kidney disease, or unspecified chronic kidney disease; E11.22 Type 2 diabetes mellitus with diabetic chronic kidney disease; N18.32 Chronic kidney disease, stage 3b; E78.5 Hyperlipidemia, unspecified; J96.11 Chronic respiratory failure with hypoxia; Z87.891 Personal history of nicotine dependence; Z79.4 Long term (current) use of insulin; Z79.899 Other long term (current) drug therapy; Z88.8 Allergy status to other drugs, medicaments and biological substances; J44.9 Chronic obstructive pulmonary disease, unspecified; G47.30 Sleep apnea, unspecified ==